=== PATIENT | female | born 1935 | race African-American/Black ===

== ENCOUNTER 2016-12-10 09:22 | Outpatient (CLI) | payer MEDICARE ==
[2016-12-10 10:24] LABS: #Basophils 0.2 thou/uL (0.0-0.2); #Eosinphils 0.3 thou/uL (0.0-0.7); #Lymphocytes 2.9 thou/uL (1.20-3.40); #Monocytes 0.8 thou/uL (0.11-0.59); #Neutrophils 4.8 thou/uL (1.40-6.50); %Basophils 1.7 % (0.0-1.0); %Eosinophils 3.5 % (0.0-10.0); %Lymphocytes 32.2 % (21.0-51.0); %Monocytes 8.5 % (0.0-10.0); Hemoglobin 11.7 g/dL (12.0-16.0); Mean Corpuscular HGB CONC 32.7 g/dL (32.0-36.0); Mean Corpuscular Hemoglobin 28.3 pg (27.0-31.0); Mean Corpuscular Volume 86.4 fl (81.0-99.0); Mean Platelet Volume 8.7 fL (7.4-10.4); Platelet Count 249 thou/uL (130-400); RBC Distribution Width 13.9 % (11.5-14.5); Red Blood Cell (RBC) Count 4.14 mill/uL (4.20-5.40); White Blood Cell (WBC) Count 8.9 thou/uL (4.8-10.8)
[2016-12-10 11:41] LABS: ALT (SGPT) 13 U/L (0-55); AST (SGOT) 17 U/L (5-34); Albumin 3.9 g/dL (3.4-4.8); Alkaline Phosphatase 71 U/L (40-150); Anion Gap 16 mmol/L (10-20); BUN (Urea Nitrogen) 14 mg/dL (9.8-20.1); Bilirubin, Direct 0.1 mg/dL (0.1-0.3); Bilirubin, Total 0.3 mg/dL (0.2-1.2); Calc. Creatinine Clearance 0 mL/min (70-130); Calcium 9.4 mg/dL (7.8-10.44); Carbon Dioxide 24 mmol/L (23-31); Cardiac Risk 3.1 (Less than 4.5); Chloride 108 mmol/L (98-107); Cholesterol 184 mg/dL (< 200 Desired); Estimated GFR-MDRD 62; Glucose 110 mg/dL (83-110); HDL Cholesterol 59 mg/dL (>60 Neg Risk); LDL Cholesterol, Calculated 107 mg/dL; Potassium 4.6 mmol/L (3.5-5.1); Protein, Total 7.2 g/dL (5.8-8.1); Sodium 143 mmol/L (136-145); Triglycerides 90 mg/dL (Less than 150)
== END 2016-12-10 09:23 ==
LOC: MADLABBHPM 09:22
PROVIDERS: ATTEND Family Medicine
DX: E78.5 Hyperlipidemia, unspecified (principal)
CPT/HCPCS: 80048; 80061; 80076; 85025

== ENCOUNTER 2017-03-11 09:07 | Outpatient (CLI) | payer MEDICARE ==
[2017-03-11 10:05] LABS: #Basophils 0.1 thou/uL (0.0-0.2); #Eosinphils 0.3 thou/uL (0.0-0.7); #Lymphocytes 2.6 thou/uL (1.20-3.40); #Monocytes 0.6 thou/uL (0.11-0.59); #Neutrophils 3.4 thou/uL (1.40-6.50); %Basophils 1.9 % (0.0-1.0); %Eosinophils 3.6 % (0.0-10.0); %Lymphocytes 37.6 % (21.0-51.0); %Monocytes 8.5 % (0.0-10.0); %Neutrophils 48.3 % (42.0-75.0); Mean Corpuscular HGB CONC 34.1 g/dL (32.0-36.0); Mean Corpuscular Hemoglobin 29.7 pg (27.0-31.0); Mean Corpuscular Volume 87.1 fl (81.0-99.0); Mean Platelet Volume 9.4 fL (7.4-10.4); Platelet Count 220 thou/uL (130-400); RBC Distribution Width 13.5 % (11.5-14.5); Red Blood Cell (RBC) Count 4.04 mill/uL (4.20-5.40)
[2017-03-11 10:23] LABS: ALT (SGPT) 11 U/L (8-55); AST (SGOT) 14 U/L (5-34); Albumin 3.9 g/dL (3.4-4.8); Alkaline Phosphatase 67 U/L (40-150); Anion Gap 14 mmol/L (10-20); BUN (Urea Nitrogen) 10 mg/dL (9.8-20.1); Bilirubin, Total 0.3 mg/dL (0.2-1.2); Calc. Creatinine Clearance 0 mL/min (70-130); Calcium 9.3 mg/dL (7.8-10.44); Carbon Dioxide 23 mmol/L (23-31); Cardiac Risk 3.1 (Less than 4.5); Chloride 110 mmol/L (98-107); Cholesterol 162 mg/dl (< 200 Desired); Estimated GFR-MDRD 77; Glucose 96 mg/dL (83-110); HDL Cholesterol 52 mg/dL (>60 Neg Risk); LDL Cholesterol, Calculated 93 mg/dL; Potassium 4.3 mmol/L (3.5-5.1); Protein, Total 6.9 g/dL (6.0-8.3); Sodium 143 mmol/L (136-145); Triglycerides 87 mg/dL (Less than 150)
[2017-03-11 11:10] LABS: Clarity Clear (Clear)
[2017-03-11 11:11] LABS: Bilirubin Negative (Negative); Blood, Urine Negative (Negative); Glucose, Urine (Dipstick) Negative (Negative); Leukocyte Small (Negative); Nitrite Negative (Negative); Protein, Urine (Dipstick) Negative (Neg-Trace); Urobilinogen 0.2 mg/dL (0.2-1.0); pH, Urine 5.5 (5.0-9.0)
[2017-03-11 11:12] LABS: RBC/HPF 0-3 HPF (0-3); WBC/HPF 0-3 HPF (0-3)
[2017-03-11 11:13] LABS: Bacteria/HPF Rare-Few HPF (None Seen)
== END 2017-03-11 09:08 ==
LOC: MADLABBHPM 09:07
PROVIDERS: ATTEND Family Medicine
DX: E78.5 Hyperlipidemia, unspecified (principal); N18.9 Chronic kidney disease, unspecified; M15.9 Polyosteoarthritis, unspecified; D63.8 Anemia in other chronic diseases classified elsewhere
CPT/HCPCS: 36415; 80053; 80061; 81001; 84443; 85025

== ENCOUNTER 2017-06-11 09:37 | Outpatient (CLI) | payer MEDICARE ==
[2017-06-11 10:00] LABS: #Basophils 0.1 thou/uL (0.0-0.2); #Eosinphils 0.3 thou/uL (0.0-0.7); #Lymphocytes 2.4 thou/uL (1.20-3.40); #Monocytes 0.5 thou/uL (0.11-0.59); #Neutrophils 3.3 thou/uL (1.40-6.50); %Basophils 1.6 % (0.0-1.0); %Lymphocytes 36.8 % (21.0-51.0); %Monocytes 7.7 % (0.0-10.0); Hemoglobin 11.4 g/dL (12.0-16.0); Mean Corpuscular HGB CONC 30.9 g/dL (32.0-36.0); Mean Corpuscular Hemoglobin 27.6 pg (27.0-31.0); Mean Corpuscular Volume 89.3 fl (81.0-99.0); Mean Platelet Volume 7.9 fL (7.4-10.4); Platelet Count 220 thou/uL (130-400); RBC Distribution Width 15.7 % (11.5-14.5); Red Blood Cell (RBC) Count 4.12 mill/uL (4.20-5.40); White Blood Cell (WBC) Count 6.6 thou/uL (4.8-10.8)
[2017-06-11 10:23] LABS: ALT (SGPT) 10 U/L (8-55); AST (SGOT) 13 U/L (5-34); Albumin 3.8 g/dL (3.4-4.8); Alkaline Phosphatase 73 U/L (40-150); Anion Gap 12 mmol/L (10-20); BUN (Urea Nitrogen) 10 mg/dL (9.8-20.1); Bilirubin, Direct 0.2 mg/dL (0.1-0.3); Bilirubin, Total 0.4 mg/dL (0.2-1.2); Calc. Creatinine Clearance 0 mL/min (70-130); Calcium 9.3 mg/dL (7.8-10.44); Carbon Dioxide 25 mmol/L (23-31); Cardiac Risk 4.2 (Less than 4.5); Chloride 110 mmol/L (98-107); Cholesterol 175 mg/dl (< 200 Desired); Estimated GFR-MDRD 64; Glucose 96 mg/dL (83-110); HDL Cholesterol 42 mg/dL (>60 Neg Risk); LDL Cholesterol, Calculated 106 mg/dL; Potassium 3.9 mmol/L (3.5-5.1); Protein, Total 7.1 g/dL (6.0-8.3); Sodium 143 mmol/L (136-145); Triglycerides 134 mg/dL (Less than 150)
== END 2017-06-11 09:38 | disposition home or self-care (01) ==
LOC: MADLABBHPM 09:37
PROVIDERS: ATTEND Family Medicine
DX: E78.5 Hyperlipidemia, unspecified (principal); N18.9 Chronic kidney disease, unspecified; D63.1 Anemia in chronic kidney disease; R94.6 Abnormal results of thyroid function studies
CPT/HCPCS: 36415; 80048; 80061; 80076; 84443; 85025

== ENCOUNTER 2017-09-24 11:46 | Outpatient (CLI) | payer MEDICARE ==
--- NOTE | 2017-09-24 16:00 | RAD ---
RADIOGRAPH RIGHT HIP TWO VIEWS: Date: 09-24-17 Time: 11:45 a.m. History: 82-year-old female with chronic right hip pain. No recent trauma. FINDINGS: There are enthesophytes at the lateral aspect of the right iliac wing, ischial tuberosity and inferio r ramus, lateral edges of the superior and inferior aspects of the acetabulum, and at the greater and lesser trochanters. There are moderate degenerative changes at the right SI joint. there is diffuse, mild to moderate joint space narrowing of the right hip. There is moderate acetabular and subcapital osteophytosis. Right femoral head contour is maintained. IMPRESSION: 1. Moderate osteoarthrosis of the right hip. 2. 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 3. Osteoarthrosis of the right sacroiliac joint. POS: [facility]
== END 2017-09-24 11:47 | disposition home or self-care (01) ==
LOC: MADRAD 11:46
PROVIDERS: ATTEND Family Medicine
DX: M25.551 Pain in right hip (principal); M16.11 Unilateral primary osteoarthritis, right hip; M53.3 Sacrococcygeal disorders, not elsewhere classified; M76.891 Other specified enthesopathies of right lower limb, excluding foot

== ENCOUNTER 2017-11-21 14:16 | Outpatient (CLI) | payer MEDICARE ==
--- NOTE | 2017-11-21 16:06 | RAD ---
RIGHT HIP 2 VIEWS: HISTORY: Right hip pain. COMPARISON: 09/24/17. FINDINGS: There is severe joint space loss and moderate to severe osteophytosis and subchondral sclerosis. Fem oral head contour is maintained. No acute fracture or dislocation are apparent. IMPRESSION: Osteoarthritis right hip. POS: [facility]
== END 2017-11-21 14:17 | disposition home or self-care (01) ==
LOC: MADRAD 14:16
PROVIDERS: ATTEND Orthopaedic Surgery
DX: M25.551 Pain in right hip (principal); M16.11 Unilateral primary osteoarthritis, right hip

== ENCOUNTER 2017-12-10 07:54 | Outpatient (CLI) | payer MEDICARE ==
[2017-12-10 08:28] LABS: #Basophils 0.1 thou/uL (0.0-0.2); #Eosinphils 0.3 thou/uL (0.0-0.7); #Lymphocytes 2.1 thou/uL (1.20-3.40); #Monocytes 0.6 thou/uL (0.11-0.59); #Neutrophils 5.1 thou/uL (1.40-6.50); %Basophils 1.3 % (0.0-1.0); %Eosinophils 3.3 % (0.0-10.0); %Lymphocytes 25.5 % (21.0-51.0); Hemoglobin 11.3 g/dL (12.0-16.0); Mean Corpuscular HGB CONC 30.3 g/dL (32.0-36.0); Mean Corpuscular Hemoglobin 28.9 pg (27.0-31.0); Mean Corpuscular Volume 95.1 fl (81.0-99.0); Mean Platelet Volume 7.6 fL (7.4-10.4); Platelet Count 249 thou/uL (130-400); RBC Distribution Width 12.8 % (11.5-14.5); Red Blood Cell (RBC) Count 3.91 mill/uL (4.20-5.40); White Blood Cell (WBC) Count 8.1 thou/uL (4.8-10.8)
[2017-12-10 08:37] LABS: Anion Gap 17 mmol/L (10-20); BUN (Urea Nitrogen) 14 mg/dL (9.8-20.1); Calc. Creatinine Clearance 0 mL/min (70-130); Calcium 9.2 mg/dL (7.8-10.44); Carbon Dioxide 21 mmol/L (23-31); Chloride 110 mmol/L (98-107); Estimated GFR-MDRD 71; Glucose 117 mg/dL (83-110); Sodium 144 mmol/L (136-145)
--- NOTE | 2017-12-10 12:05 | RAD ---
PA AND LATERAL VIEWS CHEST: RIGHT RIB SERIES: HISTORY: Right-sided chest pain after fall. FINDINGS: The heart size is borderline. The aorta is tortuous. The lungs are well expanded without confluent areas of consolidation, pneumothorax, or pleural effusions. There are degenerative changes in the sp ine. There are fractures involving the right 5th and 6th ribs. IMPRESSION: Right 5th and 6th rib fractures. POS: [facility]
[2017-12-10 17:23] LABS: Free T4 (Free Thyroxine) 1.09 ng/dL (0.70-1.48)
== END 2017-12-10 07:55 | disposition home or self-care (01) ==
LOC: MADLABBHPM 07:54
PROVIDERS: ATTEND Family Medicine
DX: D63.8 Anemia in other chronic diseases classified elsewhere (principal); R94.6 Abnormal results of thyroid function studies; I10 Essential (primary) hypertension
CPT/HCPCS: 36415; 71046; 80048; 84439; 84443; 84481; 85025

== ENCOUNTER 2018-01-08 13:49 | Outpatient (CLI) | payer MEDICARE ==
--- NOTE | 2018-01-08 14:48 | RAD ---
PA AND LATERAL VIEWS OF CHEST: Date: 01/08/18 HISTORY: Preoperative evaluation. FINDINGS: Comparison made with exam of 12/10/17. The heart size is normal. The aorta is tortuous. The lungs are well expanded without focal areas of c onsolidation, pneumothorax, or pleural effusions. There are degenerative changes in the spine. Fractu res involving the right 5th and 6th ribs are again seen. IMPRESSION: No radiographic evidence of acute cardiopulmonary process. POS: C
== END 2018-01-08 13:50 | disposition home or self-care (01) ==
LOC: MADRAD 13:49
PROVIDERS: ATTEND Orthopaedic Surgery
DX: Z01.818 Encounter for other preprocedural examination (principal); M16.11 Unilateral primary osteoarthritis, right hip
CPT/HCPCS: 71046

== ENCOUNTER 2018-07-25 10:22 | Inpatient (IN) | payer MEDICARE ==
[2018-07-25] MEDS ORDERED: Acetaminophen 325 MG TAB PO PRN (11:52)
[2018-07-25] MEDS ORDERED: traMADol HCl 50 MG TAB PO PRN ×2 (11:54)
--- NOTE | 2018-07-25 12:59 | HP ---
Admitted to [facility] to extended care on 07/25/2018 CHIEF COMPLAINT: Weakness. PRESENT ILLNESS: The patient is an 83-year-old white female who a history of hypertension, generaliz ed osteoarthritis advanced to the right hip, creating pain with walking that has progressively got wo rse. She lives at her home, independent of all her ADLs. The patient has seen Dr. Romo for sever e arthritis of the right hip and finally advanced to where she was ready to have a hip replacement. The patient was admitted to [facility] on 07/22/2018 and underwent a right to lynnette hip arthroplasty by Dr. Leonid Romo on 07/22/2018. The patient had no problems with the surge ry and has been up ambulating some with a rolling walker. Postoperatively, she was found to have a u rinary tract infection and was started on Cipro 500 mg b.i.d. on 07/23/2018. The culture has since c ome back and the urine was reviewed today and showed the urine culture grew E. coli, colony count gre ater than 100,000. The organism is resistant to the Cipro, but sensitive to nitrofurantoin. The radha cummins was transferred to [facility] on the morning of 07/25/2018 for continued physical therapy and occupational therapy due to her general weakness, gait abnormality, and deconditioning. Patient was seen at her arrival, she said she is doing good. She has had some nausea this morning wi th the trip over here and she was given Zofran for the nausea. Prior to she was given tramadol for pain. Right now, she says she is feeling a little better. She said she has been up and has bee n walking with a rolling walker, but has a great deal of difficulty with any transfers. The patient says that the pain in the hip with weightbearing is markedly improved since her surgery, but still so re from the surgical procedure. PAST HISTORY: Hospitalized at [facility] from 07/22/2018 until 07/25/2018 for severe arth ritis of the right hip for which she underwent a right total hip arthroplasty. Postop, she was found to have a urinary tract infection with E. coli. 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 Echocardiogram in 2008 showed ejection fraction of 60%-65%, hearing impairment. PRESENT MEDICINES: Tramadol 50 mg 1-2 every 6 hours as needed for pain, aspirin 81 mg daily, Cipro 5 00 mg b.i.d. started on 07/23/2018, multivitamin 1 daily, losartan 50 mg daily, amlodipine 5 mg daily , KCl 10 mEq b.i.d., Advil PM 2 at bedtime as needed, gabapentin 100 mg 2 at bedtime, Aleve 220 mg 2 b.i.d. as needed. ALLERGIES: SULFA DRUGS causes a rash, CLINDAMYCIN causes a rash, PENICILLIN, IBUPROFEN causes vertig o, SULFASALAZINE causes depression, LISINOPRIL causes cough. REVIEW OF SYSTEMS: General: The patient does not think that she has had any recent fever. She does not think her weight has changed appreciably. Head and Neck: No complaints. Pulmonary: No shortn ess of breath. Cardiovascular: No chest pain. Gastrointestinal: Nauseated this morning with the t rip from [facility] to here, had nausea a couple of days ago. The patient has no abdomina l pain. Denies any change in her bowel habits. Genitourinary: No complaint. Musculoskeletal: Sore ness in the right hip from the surgery. Neuropsychiatric: No complaint. ADLs: Independent of her ADLs. HABITS: Alcohol none. Tobacco none. SOCIAL HISTORY: Patient lives independently, and is independent of all her ADLs. CODE STATUS: FULL CODE. PHYSICAL EXAMINATION: GENERAL: Shows an 83-year-old white female who just arrived in her room and was seated in her room. She had trouble getting up from the wheelchair and required 2 people assisting. Once in her chair, she was comfortable. She appears a little pale, but in no acute distress. VITAL SIGNS: Temperature is 96.4, pulse 73, respirations 20, O2 saturation 100% on room air, blood p ressure 155/70. HEAD: Normocephalic. EYES: Pupils are equal, round, and reactive. Sclerae nonicteric. EARS: TMs are clear. NOSE: Normal. MOUTH AND THROAT: Normal, mucous membranes are moist. NECK: No thyromegaly. No adenopathy. Carotids are equal and strong, no bruits. LUNGS: Clear. HEART: Regular rate. No murmurs. ABDOMEN: Soft, no organomegaly, nor areas of tenderness. Right hip, the patient has an incision patrice t has been closed with subcuticular stitch and has no surrounding redness nor drainage. EXTREMITIES: Lower extremities, no edema. NEUROLOGIC: Patient is alert and oriented x3, has generalized weakness, but no focal weakness. IMPRESSION: 1. Generalized weakness and deconditioning. A. Gradual decline in her general strength and conditioning due to severe arthritis in the hip. B. Contributed to now by the surgery for the hip replacement on the right on 07/22/2018. 2. Severe arthritis of the right hip. A. Creating chronic pain with weightbearing. B. 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 3. Urinary tract infection. A. Urine culture from 07/23/2018 shows E. coli, colony count greater than 100,000, organism resistan t to Cipro, but sensitive to nitrofurantoin. 4. Hypertension, controlled. 5. Peripheral neuropathy of the lower extremities. 6. Hyperlipidemia. PLAN: The patient has been admitted to the hospital for physical therapy and occupational therapy in an effort to improve her strength, conditioning, gait, and functional capability. Long range of jayden ns will be for her eventual discharge home. We will continue her routine medicines. We will stop th e Cipro and switched to nitrofurantoin b.i.d. for 10 days. Continue her routine medications. See or ders.
[2018-07-25] MEDS: Nitrofurantoin Monohyd/M-Cryst 100 MG CAP PO SCH (20:28)
[2018-07-25] MEDS: Aspirin 81 mg Enteric Coated Tablet PO SCH (20:28)
[2018-07-25] MEDS: Potassium Chloride 10 MEQ TAB PO SCH (20:28)
[2018-07-26 05:26] LABS: #Basophils 0.3 thou/uL (0.0-0.2); #Eosinphils 0.1 thou/uL (0.0-0.7); #Neutrophils 8.9 thou/uL (1.40-6.50); %Basophils 1.9 % (0.0-1.0); %Eosinophils 0.7 % (0.0-10.0); %Lymphocytes 22.7 % (21.0-51.0); %Monocytes 7.4 % (0.0-10.0); %Neutrophils 67.3 % (42.0-75.0); Hemoglobin 9.2 g/dL (12.0-16.0); Mean Corpuscular HGB CONC 32.7 g/dL (32.0-36.0); Mean Corpuscular Hemoglobin 27.4 pg (27.0-31.0); Mean Corpuscular Volume 83.9 fL (78.0-98.0); Platelet Count 231 thou/uL (130-400); RBC Distribution Width 12.1 % (11.5-14.5); Red Blood Cell (RBC) Count 3.37 mill/uL (4.20-5.40); White Blood Cell (WBC) Count 13.3 thou/uL (4.8-10.8)
[2018-07-26 05:42] LABS: ALT (SGPT) 23 U/L (8-55); AST (SGOT) 31 U/L (5-34); Alkaline Phosphatase 55 U/L (40-150); Anion Gap 10 mmol/L (10-20); BUN (Urea Nitrogen) 18 mg/dL (9.8-20.1); Bilirubin, Total 0.6 mg/dL (0.2-1.2); Calc. Creatinine Clearance 66 mL/min (70-130); Carbon Dioxide 25 mmol/L (23-31); Chloride 109 mmol/L (98-107); Estimated GFR-MDRD 82; Globulin 3.3 g/dL (2.4-3.5); Glucose 104 mg/dL (83-110); Protein, Total 6.3 g/dL (6.0-8.3); Sodium 140 mmol/L (136-145)
[2018-07-26] MEDS ORDERED: traMADol HCl 50 MG TAB PO PRN (08:09)
[2018-07-26] MEDS: Multivitamin W/ Minerals 1 TAB PO SCH (09:12)
[2018-07-26] MEDS: Losartan 25 MG TAB PO SCH (09:12)
[2018-07-26] MEDS: Potassium Chloride 10 MEQ TAB PO SCH ×2 (09:12→20:17)
[2018-07-26] MEDS: Nitrofurantoin Monohyd/M-Cryst 100 MG CAP PO SCH ×2 (09:13→20:17)
[2018-07-26] MEDS: Amlodipine 5 MG TAB PO SCH (09:13)
[2018-07-26] MEDS: Aspirin 81 mg Enteric Coated Tablet PO SCH ×2 (09:13→20:17)
[2018-07-26] MEDS: Ondansetron ODT 4 MG TAB PO PRN ×3 (09:18→22:25)
[2018-07-27] MEDS: Amlodipine 5 MG TAB PO SCH (08:41)
[2018-07-27] MEDS: Aspirin 81 mg Enteric Coated Tablet PO SCH ×2 (08:41→20:59)
[2018-07-27] MEDS: Potassium Chloride 10 MEQ TAB PO SCH ×2 (08:41→20:59)
[2018-07-27] MEDS: Nitrofurantoin Monohyd/M-Cryst 100 MG CAP PO SCH ×2 (08:41→21:00)
[2018-07-27] MEDS: Multivitamin W/ Minerals 1 TAB PO SCH (08:41)
[2018-07-27] MEDS: Losartan 25 MG TAB PO SCH (08:41)
[2018-07-27] MEDS: Ondansetron ODT 4 MG TAB PO PRN (08:52)
[2018-07-28] MEDS: Amlodipine 5 MG TAB PO SCH (08:34)
[2018-07-28] MEDS: Ondansetron ODT 4 MG TAB PO PRN ×2 (08:34→20:05)
[2018-07-28] MEDS: Aspirin 81 mg Enteric Coated Tablet PO SCH ×2 (08:34→21:06)
[2018-07-28] MEDS: Nitrofurantoin Monohyd/M-Cryst 100 MG CAP PO SCH ×2 (08:35→21:06)
[2018-07-28] MEDS: Potassium Chloride 10 MEQ TAB PO SCH ×2 (08:35→21:07)
[2018-07-28] MEDS: Losartan 25 MG TAB PO SCH (08:35)
[2018-07-28] MEDS: Multivitamin W/ Minerals 1 TAB PO SCH (08:35)
--- NOTE | 2018-07-28 09:25 | PRG ---
DATE OF SERVICE: 07/26/2018. SUBJECTIVE: The patient says she is feeling better today, the trip over here from [place] wore her out yesterday. Today, she is feeling better. OBJECTIVE: GENERAL: The patient is lying in bed, alert, appears comfortable in no distress. VITAL SIGNS: Her temperature is 98.3, pulse 79, respirations 16, O2 saturation 97%, blood pressure 1 37/64. LUNGS: Clear. HEART: Regular rate. EXTREMITIES: No edema. Dressing over the incision of the right hip is dry. LABORATORY DATA: Shows an H&H of 9.2 and 28.3, white cell count 13,300 with 67% segs, 23% lymphocyte s, and a platelet count of 231. Sodium 140, potassium 4, BUN 18, creatinine 0.8, GFR 82. ASSESSMENT: 1. Generalized weakness and deconditioning. A. Gradual decline in her general strength and conditioning due to severe arthritis in the hip. B. Contributed to now by the surgery for the hip replacement on the right on 07/22/2018. C. Improved. Ambulating with a rolling walker and assistance as of 07/26/2018. 2. Severe arthritis of the right hip. A. Creating chronic pain with weightbearing. B. 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 C. Doing well from recent right hip surgery on postop day #4 as of 07/26/2018. 3. Urinary tract infection. A. Urine culture from 07/23/2018 shows E. coli, colony count greater than 100,000, organism resistan t to Cipro, but sensitive to nitrofurantoin. B. Asymptomatic, presently on nitrofurantoin as of 07/26/2018. 4. Hypertension, controlled. 5. Peripheral neuropathy of the lower extremities. 6. Hyperlipidemia. 7. Anemia. A. Secondary to recent surgery and history of mild chronic anemia. Hemoglobin 9.2 as of 07/26/2018. PLAN: Continue present care. Continue PT.
--- NOTE | 2018-07-28 09:26 | PRG ---
DATE OF SERVICE: 07/28/2018 SUBJECTIVE: The patient said she has been doing well, but has been having some intermittent nausea. She is only occasionally taking the tramadol. It does not seem be related to this. She is not taki ng the naproxen. She is on the Macrobid and some of the nausea may be following this. This is being given with food. OBJECTIVE: The patient is alert, talkative, appears in no acute distress. Her temperature is 99.4, pulse 83, respirations 16, O2 sat 97% on room air, blood pressure last evening was 167/72. Vitals th is morning pending. Lungs clear. Heart, regular rate. Incision is clean with a tiny amount of sero us drainage on the dressing. The lower extremities have no edema. ASSESSMENT: 1. Generalized weakness and deconditioning. A. Gradual decline in her general strength and conditioning due to severe arthritis in the hip. B. Contributed to now by the surgery for the hip replacement on the right on 07/22/2018. C. Improved as of 07/28/2018. 2. Severe arthritis of the right hip. A. Creating chronic pain with weightbearing. B. 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 C. Healing as of 07/28/2018. 3. Urinary tract infection. A. Urine culture from 07/23/2018 shows E. coli, colony count greater than 100,000, organism resistan t to Cipro, but sensitive to nitrofurantoin. 4. Hypertension, controlled. 5. Peripheral neuropathy of the lower extremities. 6. Hyperlipidemia. 7. Nausea, possibly related to the Macrobid. PLAN: Continue present care. Macrobid will be given with food and dosage will be preceded by Maral . She has been scheduled to use this for a 7 day period which will complete on 08/01/2018. She also has been placed on pantoprazole. Continue PT and OT.
[2018-07-29] MEDS: Ondansetron ODT 4 MG TAB PO PRN ×2 (08:37→19:58)
[2018-07-29] MEDS: Aspirin 81 mg Enteric Coated Tablet PO SCH ×2 (08:53→20:08)
[2018-07-29] MEDS: Amlodipine 5 MG TAB PO SCH (08:53)
[2018-07-29] MEDS: Potassium Chloride 10 MEQ TAB PO SCH ×2 (08:54→20:08)
[2018-07-29] MEDS: Losartan 25 MG TAB PO SCH (08:54)
[2018-07-29] MEDS: Nitrofurantoin Monohyd/M-Cryst 100 MG CAP PO SCH ×2 (08:54→20:08)
[2018-07-29] MEDS: Multivitamin W/ Minerals 1 TAB PO SCH (08:54)
--- NOTE | 2018-07-29 10:30 | PRG ---
DATE OF SERVICE: 07/29/2018 SUBJECTIVE: The patient said she is feeling better today. The patient said that the nausea is much better. She is eating some. She has asked for a laxative. Her bowels have not moved in several day s. At home, she uses Dulcolax tablets as needed and this works good. OBJECTIVE: The patient is sitting up in a chair. She looks much better. She appears in no distress . Her temperature is 97.2, pulse 78, respirations 18, O2 saturation 98% on room air, blood pressure 121/59. Lungs are clear. Heart, regular rate. Extremities, no edema. ASSESSMENT: 1. Generalized weakness and deconditioning. A. Gradual decline in her general strength and conditioning due to severe arthritis in the hip. B. Contributed to now by the surgery for the hip replacement on the right on 07/22/2018. C. Improved as of 07/29/2018. 2. Severe arthritis of the right hip. A. Creating chronic pain with weightbearing. B. 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 C. Healing as of 07/29/2018. 3. Urinary tract infection. A. Urine culture from 07/23/2018 shows E. coli, colony count greater than 100,000, organism resistan t to Cipro, but sensitive to nitrofurantoin. 4. Hypertension, controlled. 5. Peripheral neuropathy of the lower extremities. 6. Hyperlipidemia. 7. Nausea, possibly related to the Macrobid. A. Improved. 8. Constipation. PLAN: Continue present care. Continue PT, OT. I will order Dulcolax 5 mg 1 or 2 daily as needed.
[2018-07-29] MEDS: Bisacodyl 5 MG TAB PO PRN (13:22)
[2018-07-30] MEDS: Losartan 25 MG TAB PO SCH (08:24)
[2018-07-30] MEDS: Ondansetron ODT 4 MG TAB PO PRN ×2 (08:24→20:00)
[2018-07-30] MEDS: Multivitamin W/ Minerals 1 TAB PO SCH (08:24)
[2018-07-30] MEDS: Amlodipine 5 MG TAB PO SCH (08:24)
[2018-07-30] MEDS: Potassium Chloride 10 MEQ TAB PO SCH ×2 (08:24→20:10)
[2018-07-30] MEDS: Nitrofurantoin Monohyd/M-Cryst 100 MG CAP PO SCH ×2 (08:25→20:10)
[2018-07-30] MEDS: Aspirin 81 mg Enteric Coated Tablet PO SCH ×2 (08:25→20:10)
[2018-07-30] MEDS: Bisacodyl 5 MG TAB PO PRN (08:41)
--- NOTE | 2018-07-30 11:20 | PRG ---
DATE OF SERVICE: 07/30/2018 SUBJECTIVE: The patient said she is doing better. She was able to walk a little further. She is no t having any more of the nausea. OBJECTIVE: The patient is walking with her walker and therapist back from physical therapy room. She has her walker and is doing well. She appears comfortable in no distress. Her vital signs show a t emperature 97.5, pulse 87, respirations 18, O2 sat 97% on room air, blood pressure 122/64. Lungs wer e clear. Heart, regular rate. Extremities, no edema. ASSESSMENT: 1. Generalized weakness and deconditioning. A. Gradual decline in her general strength and conditioning due to severe arthritis in the hip. B. Contributed to now by the surgery for the hip replacement on the right on 07/22/2018. C. Improved as of 07/30/2018. 2. Severe arthritis of the right hip. A. Creating chronic pain with weightbearing. B. 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 C. Healing as of 07/29/2018. 3. Urinary tract infection. A. Urine culture from 07/23/2018 shows E. coli, colony count greater than 100,000, organism resistan t to Cipro, but sensitive to nitrofurantoin. B. Asymptomatic as of 07/30/2018. Will complete the nitrofurantoin on 08/01/2018. 4. Hypertension, controlled. 5. Peripheral neuropathy of the lower extremities. 6. Hyperlipidemia. 7. Nausea, possibly related to the Macrobid. A. Resolved as of 07/30/2018. 8. Constipation. PLAN: Continue present care. Continue PT and OT.
[2018-07-31] MEDS: Ondansetron ODT 4 MG TAB PO PRN ×2 (08:19→20:30)
[2018-07-31] MEDS: Aspirin 81 mg Enteric Coated Tablet PO SCH ×2 (08:31→20:36)
[2018-07-31] MEDS: Losartan 25 MG TAB PO SCH (08:31)
[2018-07-31] MEDS: Amlodipine 5 MG TAB PO SCH (08:31)
[2018-07-31] MEDS: Multivitamin W/ Minerals 1 TAB PO SCH (08:32)
[2018-07-31] MEDS: Potassium Chloride 10 MEQ TAB PO SCH ×2 (08:32→20:36)
[2018-07-31] MEDS: Nitrofurantoin Monohyd/M-Cryst 100 MG CAP PO SCH ×2 (08:32→20:35)
--- NOTE | 2018-07-31 10:03 | PRG ---
DATE OF SERVICE: 07/31/2018 SUBJECTIVE: The patient said she is doing a little better. She is doing better with the therapy. S till sore in that right hip area, but it is improving. OBJECTIVE: The patient is sitting up in a bedside chair, preparing to have breakfast. She looks com fortable in no distress. Her vital signs show a temperature 96.7, pulse 83, respirations 16, O2 sat 97% on room air, blood pressure 122/56. Lungs are clear. Heart, regular rate. Extremities, no umu a. ASSESSMENT: 1. Generalized weakness and deconditioning. A. Gradual decline in her general strength and conditioning due to severe arthritis in the hip. B. Contributed to now by the surgery for the hip replacement on the right on 07/22/2018. C. Improved as of 07/31/2018. 2. Severe arthritis of the right hip. A. Creating chronic pain with weightbearing. B. 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 C. Gradually healing as of 07/31/2018. 3. Urinary tract infection. A. Urine culture from 07/23/2018 shows E. coli, colony count greater than 100,000, organism resistan t to Cipro, but sensitive to nitrofurantoin. B. Asymptomatic as of 07/30/2018. Will complete the nitrofurantoin on 08/01/2018. 4. Hypertension, controlled. 5. Peripheral neuropathy of the lower extremities. 6. Hyperlipidemia. 7. Nausea, possibly related to the Macrobid. A. Resolved as of 07/30/2018. 8. Constipation. PLAN: Continue present care. Continue PT, OT. The patient will complete her antibiotics for the NM I tomorrow 08/01/2018.
[2018-08-01] MEDS: Losartan 25 MG TAB PO SCH (09:46)
[2018-08-01] MEDS: Amlodipine 5 MG TAB PO SCH (09:48)
[2018-08-01] MEDS: Nitrofurantoin Monohyd/M-Cryst 100 MG CAP PO SCH ×2 (09:49→20:55)
[2018-08-01] MEDS: Multivitamin W/ Minerals 1 TAB PO SCH (09:49)
[2018-08-01] MEDS: Potassium Chloride 10 MEQ TAB PO SCH ×2 (09:50→20:55)
[2018-08-01] MEDS: Aspirin 81 mg Enteric Coated Tablet PO SCH ×2 (09:50→20:55)
--- NOTE | 2018-08-01 10:58 | PRG ---
DATE OF SERVICE: 08/01/2018 SUBJECTIVE: The patient said she is doing better. She has had no more nausea. Her bowels are worki ng well. Her pain in that right hip is getting less and less. She is doing better with her therapy. OBJECTIVE: GENERAL: The patient is sitting up in a chair. She appears in no distress. VITAL SIGNS: Show a temperature of 98, her pulse is 82, respirations 18, O2 sat 95% on room air, blo od pressure 138/72. LUNGS: Clear. HEART: Regular rate. EXTREMITIES: No edema. ASSESSMENT: 1. Generalized weakness and deconditioning. A. Gradual decline in her general strength and conditioning due to severe arthritis in the hip. B. Contributed to now by the surgery for the hip replacement on the right on 07/22/2018. C. Improved as of 08/01/2018. 2. Severe arthritis of the right hip. A. Creating chronic pain with weightbearing. B. 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 C. Gradually improving as of 08/01/2018 3. Urinary tract infection. A. Urine culture from 07/23/2018 shows E. coli, colony count greater than 100,000, organism resistan t to Cipro, but sensitive to nitrofurantoin. B. Asymptomatic as of 07/30/2018. Will complete the nitrofurantoin on 08/01/2018. 4. Hypertension, controlled. 5. Peripheral neuropathy of the lower extremities. 6. Hyperlipidemia. 7. Nausea, possibly related to the Macrobid. A. Resolved as of 07/30/2018. 8. Constipation. A. Controlled as of 08/01/2018. PLAN: Continue present care. Continue PT and OT.
[2018-08-02] MEDS: traMADol HCl 50 MG TAB PO PRN ×2 (00:26→20:44)
[2018-08-02] MEDS: Amlodipine 5 MG TAB PO SCH (09:44)
[2018-08-02] MEDS: Losartan 25 MG TAB PO SCH (09:46)
[2018-08-02] MEDS: Multivitamin W/ Minerals 1 TAB PO SCH (09:46)
[2018-08-02] MEDS: Aspirin 81 mg Enteric Coated Tablet PO SCH ×2 (09:46→20:44)
[2018-08-02] MEDS: Potassium Chloride 10 MEQ TAB PO SCH ×2 (09:47→20:44)
[2018-08-03] MEDS: Amlodipine 5 MG TAB PO SCH (09:59)
[2018-08-03] MEDS: Losartan 25 MG TAB PO SCH (10:00)
[2018-08-03] MEDS: Aspirin 81 mg Enteric Coated Tablet PO SCH ×2 (10:00→20:10)
[2018-08-03] MEDS: Multivitamin W/ Minerals 1 TAB PO SCH (10:01)
[2018-08-03] MEDS: Potassium Chloride 10 MEQ TAB PO SCH ×2 (10:02→20:10)
--- NOTE | 2018-08-04 09:08 | PRG ---
DATE OF SERVICE: 08/02/2018 SUBJECTIVE: The patient thinks she is doing better. She had a good night. She completed her antibi otics for the UTI yesterday. Her hip is feeling better. OBJECTIVE: The patient lying in bed, awake, appears comfortable, in no distress. Temp 98.6, pulse 8 7, respirations 18, O2 sat 100% on room air, blood pressure 127/60. Lungs are clear. Heart, regular rate. Extremities, no edema. ASSESSMENT: 1. Generalized weakness and deconditioning. A. Gradual decline in her general strength and conditioning due to severe arthritis in the hip. B. Contributed to now by the surgery for the hip replacement on the right on 07/22/2018. C. Improved as of 08/02/2018. 2. Severe arthritis of the right hip. A. Creating chronic pain with weightbearing. B. 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 C. Gradually improving as of 08/02/2018 3. Urinary tract infection. A. Urine culture from 07/23/2018 shows E. coli, colony count greater than 100,000, organism resistan t to Cipro, but sensitive to nitrofurantoin. B. Completed the 7-day course of nitrofurantoin on 08/01/2018. Remains asymptomatic as of 8. 4. Hypertension, controlled. 5. Peripheral neuropathy of the lower extremities. 6. Hyperlipidemia. 7. Nausea, possibly related to the Macrobid. A. Resolved as of 07/30/2018. 8. Constipation. A. Controlled as of 08/02/2018. PLAN: Continue present care. Continue PT and OT.
--- NOTE | 2018-08-04 09:09 | PRG ---
DATE OF SERVICE: 08/03/2018 SUBJECTIVE: Yesterday, patient developed an itching on her upper portion of her incision over the ri ght hip. This then developed some drainage. Nurses said that there was just a serosanguineous drain age, no redness, and just an overlying dressing was applied. The patient said that area is not hurti ng. The itch has just gone away. OBJECTIVE: The patient lying in bed, alert, appears very comfortable, and in no distress. Her tempe rature is 96.5, pulse 85, respirations are 18, O2 sat 94%, blood pressure 108/51. Lungs are clear. Heart, regular rate. Incision over the right hip is healing well. The most superior aspect has abou t a 5 mm opening that has some serosanguineous drainage. There is no surrounding redness nor indurat ion nor fluctuance. The area was nontender. This probably represents a little small drainage of the seroma and tissue. ASSESSMENT: 1. Generalized weakness and deconditioning. A. Gradual decline in her general strength and conditioning due to severe arthritis in the hip. B. Contributed to now by the surgery for the hip replacement on the right on 07/22/2018. C. Improved as of 08/03/2018. 2. Severe arthritis of the right hip. A. Creating chronic pain with weightbearing. B. 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 C. Gradually healing as of 08/03/2018. D. Small opening in the superior aspect of this incision with serosanguineous drainage. No evidence of infection as of 08/03/2018. 3. Urinary tract infection. A. Urine culture from 07/23/2018 shows E. coli, colony count greater than 100,000, organism resistan t to Cipro, but sensitive to nitrofurantoin. B. Asymptomatic as of 07/30/2018. Will complete the nitrofurantoin on 08/01/2018. 4. Hypertension, controlled. 5. Peripheral neuropathy of the lower extremities. 6. Hyperlipidemia. 7. Nausea, possibly related to the Macrobid. A. Resolved as of 07/30/2018. 8. Constipation. A. Controlled as of 08/03/2018. PLAN: The patient is doing very well, is advancing with her therapy. She has developed a tiny openi ng in the superior aspect of the incision. The drainage is serosanguineous, probably representing ju st some fluid blood in the tissue or small seroma. No evidence of infection. This will just be kept clean and a dressing applied and observed.
--- NOTE | 2018-08-04 09:10 | PRG ---
DATE OF SERVICE: 08/04/2018 SUBJECTIVE: The patient says she is doing better. She has no complaint. The hip is not itching lik e it was. OBJECTIVE: The patient is sitting up in a chair. She is alert, appears comfortable in no distress. Her temperature is 99.3, pulse 83, respirations 18, O2 sat 96% on room air, blood pressure 117/56. Lungs are clear. Heart, regular rate. Extremities, no edema. Incision over the right hip healing. The most superior aspect still has a small dressing that is dry. There is no surrounding redness no r induration. ASSESSMENT: 1. Generalized weakness and deconditioning. A. Gradual decline in her general strength and conditioning due to severe arthritis in the hip. B. Contributed to now by the surgery for the hip replacement on the right on 07/22/2018. C. Improved as of 08/04/2018. 2. Severe arthritis of the right hip. A. Creating chronic pain with weightbearing. B. 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 C. Excellent postop progress as of 08/04/2018. 3. Urinary tract infection. A. Urine culture from 07/23/2018 shows E. coli, colony count greater than 100,000, organism resistan t to Cipro, but sensitive to nitrofurantoin. B. Asymptomatic as of 07/30/2018. Will complete the nitrofurantoin on 08/01/2018. 4. Hypertension, controlled. 5. Peripheral neuropathy of the lower extremities. 6. Hyperlipidemia. 7. Nausea, possibly related to the Macrobid. A. Resolved as of 07/30/2018. 8. Constipation. A. Controlled as of 08/01/2018. 9. A small amount of serosanguineous drainage from the superior aspect of the incision of the right hip as noted on 08/03/2018. A. Improved with no evidence of infection as of 08/04/2018. PLAN: Continue present care. Continue physical therapy.
[2018-08-04] MEDS: Amlodipine 5 MG TAB PO SCH (09:26)
[2018-08-04] MEDS: Multivitamin W/ Minerals 1 TAB PO SCH (09:26)
[2018-08-04] MEDS: Aspirin 81 mg Enteric Coated Tablet PO SCH ×2 (09:27→20:17)
[2018-08-04] MEDS: Potassium Chloride 10 MEQ TAB PO SCH ×2 (09:27→20:17)
[2018-08-04] MEDS: Losartan 25 MG TAB PO SCH (09:27)
[2018-08-04] MEDS: Bisacodyl 5 MG TAB PO PRN (18:27)
[2018-08-05] MEDS: traMADol HCl 50 MG TAB PO PRN (01:44)
[2018-08-05 05:45] LABS: #Basophils 0.1 thou/uL (0.0-0.2); #Eosinphils 0.2 thou/uL (0.0-0.7); #Lymphocytes 3.8 thou/uL (1.20-3.40); #Neutrophils 6.7 thou/uL (1.40-6.50); %Basophils 1.1 % (0.0-1.0); %Eosinophils 1.4 % (0.0-10.0); %Lymphocytes 32.3 % (21.0-51.0); %Monocytes 8.2 % (0.0-10.0); Mean Corpuscular HGB CONC 31.9 g/dL (32.0-36.0); Mean Corpuscular Volume 84.6 fL (78.0-98.0); Mean Platelet Volume 7.1 fL (7.4-10.4); Platelet Count 387 thou/uL (130-400); RBC Distribution Width 12.7 % (11.5-14.5); Red Blood Cell (RBC) Count 3.34 mill/uL (4.20-5.40); White Blood Cell (WBC) Count 11.8 thou/uL (4.8-10.8)
[2018-08-05 05:55] LABS: Anion Gap 13 mmol/L (10-20); BUN (Urea Nitrogen) 9 mg/dL (9.8-20.1); Calc. Creatinine Clearance 60 mL/min (70-130); Calcium 8.8 mg/dL (7.8-10.44); Carbon Dioxide 24 mmol/L (23-31); Chloride 108 mmol/L (98-107); Estimated GFR-MDRD 73; Glucose 103 mg/dL (83-110); Potassium 4.2 mmol/L (3.5-5.1); Sodium 141 mmol/L (136-145)
[2018-08-05] MEDS: Aspirin 81 mg Enteric Coated Tablet PO SCH ×2 (08:28→20:17)
[2018-08-05] MEDS: Amlodipine 5 MG TAB PO SCH (08:28)
[2018-08-05] MEDS: Losartan 25 MG TAB PO SCH (08:28)
[2018-08-05] MEDS: Multivitamin W/ Minerals 1 TAB PO SCH (08:28)
[2018-08-05] MEDS: Potassium Chloride 10 MEQ TAB PO SCH ×2 (08:29→20:17)
[2018-08-05 10:50] VITALS: BMI 26.5
--- NOTE | 2018-08-05 10:51 | PRG ---
DATE OF SERVICE: 08/05/2018 SUBJECTIVE: The patient thinks she is doing better. She is doing better with her therapy. Her pain is less. OBJECTIVE: The patient lying in bed, alert, appears very comfortable in no distress. Her temperatur e is 97.8, pulse 79, respirations 18, O2 sat 100% on room air, blood pressure 125/58. Lungs were amarjit ar. Heart, regular rate. Extremities, no edema. The incision along the right hip in the superior p ortion where she had the serous drainage has sealed over. There is no drainage. There is no redness nor surrounding induration. Her lab shows a H&H of 9 and 28.3, white cell count 11,800 with 57% segs, 32% lymphocytes, and a plat elet count of 387,000. Sodium 141, potassium 4.2, BUN 9, creatinine 0.9, GFR 73, glucose 73. ASSESSMENT: 1. Generalized weakness and deconditioning. A. Gradual decline in her general strength and conditioning due to severe arthritis in the hip. B. Contributed to now by the surgery for the hip replacement on the right on 07/22/2018. C. Improved as of 08/05/2018. 2. Severe arthritis of the right hip. A. Creating chronic pain with weightbearing. B. 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 C. Excellent postop progress as of 08/05/2018. 3. Urinary tract infection. A. Urine culture from 07/23/2018 shows E. coli, colony count greater than 100,000, organism resistan t to Cipro, but sensitive to nitrofurantoin. B. Asymptomatic as of 07/30/2018. Will complete the nitrofurantoin on 08/01/2018. 4. Hypertension, controlled. 5. Peripheral neuropathy of the lower extremities. 6. Hyperlipidemia. 7. Nausea, possibly related to the Macrobid. A. Resolved as of 07/30/2018. 8. Constipation. A. Controlled as of 08/01/2018. 9. A small amount of serosanguineous drainage from the superior aspect of the incision of the right hip as noted on 08/03/2018. A. Improved with no evidence of infection as of 08/04/2018. B. The small opening in the incision is healing over. There is no drainage as of 08/05/2018. 10. Anemia. A. Secondary to recent surgery. B. Stable with hemoglobin of 9 as of 08/05/2018. PLAN: The patient continues to improve. We will continue present care.
[2018-08-06] MEDS: Potassium Chloride 10 MEQ TAB PO SCH ×2 (08:20→20:31)
[2018-08-06] MEDS: Amlodipine 5 MG TAB PO SCH (08:20)
[2018-08-06] MEDS: Losartan 25 MG TAB PO SCH (08:20)
[2018-08-06] MEDS: Multivitamin W/ Minerals 1 TAB PO SCH (08:21)
[2018-08-06] MEDS: Aspirin 81 mg Enteric Coated Tablet PO SCH ×2 (08:21→20:31)
--- NOTE | 2018-08-06 10:12 | PRG ---
DATE OF SERVICE: 08/06/2018 SUBJECTIVE: The patient thinks she is doing better, doing better with therapy. She still has troubl e with the transfers and needs a little help, is tired afterwards. She has already been up for a wal k this morning and has done better. OBJECTIVE: The patient is alert, appears in no distress. She is sitting in her bedside chair just r eturning from the bathroom. Her temperature is 97.7, pulse 81, respirations 18, O2 saturation 98% on room air. Her blood pressure is 148/67. Lungs were clear. Heart, regular rate. Extremities, no e [place]. ASSESSMENT: 1. Generalized weakness and deconditioning. A. Gradual decline in her general strength and conditioning due to severe arthritis in the hip. B. Contributed to now by the surgery for the hip replacement on the right on 07/22/2018. C. Improved as of 08/06/2018. 2. Severe arthritis of the right hip. A. Creating chronic pain with weightbearing. B. 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 C. Excellent postop progress as of 08/06/2018. 3. Urinary tract infection. A. Urine culture from 07/23/2018 shows E. coli, colony count greater than 100,000, organism resistan t to Cipro, but sensitive to nitrofurantoin. B. Completed nitrofurantoin on 08/01/2018. Remains asymptomatic as of 08/06/2018. 4. Hypertension, controlled. 5. Peripheral neuropathy of the lower extremities. 6. Hyperlipidemia. 7. Nausea, possibly related to the Macrobid. A. Resolved as of 07/30/2018. 8. Constipation. A. Controlled as of 08/01/2018. 9. A small amount of serosanguineous drainage from the superior aspect of the incision of the right hip as noted on 08/03/2018. A. Improved with no evidence of infection as of 08/04/2018. B. The small opening in the incision is healing over. There is no drainage as of 08/05/2018. 10. Anemia. A. Secondary to recent surgery. B. Stable with hemoglobin of 9 as of 08/05/2018. PLAN: The patient is making gradual progress. Still requiring more help with transfers and still fa tigues after her exercise. She is improving. With a little longer in physical therapy I think she w ill be able to manage well at home. Anticipate will continue to work with her for at least another w [place] and then consider discharge home.
[2018-08-06] MEDS: Bisacodyl 5 MG TAB PO PRN (20:33)
[2018-08-07] MEDS: Polyethylene Glycol 3350 17 GM Packet PO SCH (08:50)
[2018-08-07] MEDS: Multivitamin W/ Minerals 1 TAB PO SCH (08:50)
[2018-08-07] MEDS: Potassium Chloride 10 MEQ TAB PO SCH ×2 (08:50→20:10)
[2018-08-07] MEDS: Aspirin 81 mg Enteric Coated Tablet PO SCH ×2 (08:51→20:10)
[2018-08-07] MEDS: Bisacodyl 5 MG TAB PO PRN (08:51)
[2018-08-07] MEDS: Amlodipine 5 MG TAB PO SCH (08:52)
[2018-08-07] MEDS: Losartan 25 MG TAB PO SCH (08:52)
--- NOTE | 2018-08-07 09:21 | PRG ---
DATE OF SERVICE: 08/07/2018 SUBJECTIVE: The patient said that she is feeling better. She is doing good with the therapy. Her b owels are moving good. OBJECTIVE: The patient is sitting up in a chair, preparing to eat breakfast. She looks very comfort able, talkative, and in no distress. Temp 97.9, pulse was 107. After exercise earlier it was 86, re spirations 20, O2 sat 98% on room air, blood pressure 160/70. Lungs are clear. Heart, regular rate. Extremities, no edema. ASSESSMENT: 1. Generalized weakness and deconditioning. A. Gradual decline in her general strength and conditioning due to severe arthritis in the hip. B. Contributed to now by the surgery for the hip replacement on the right on 07/22/2018. C. Improved as of 08/07/2018. 2. Severe arthritis of the right hip. A. Creating chronic pain with weightbearing. B. 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 C. Excellent postop progress as of 08/07/2018. 3. Urinary tract infection. A. Urine culture from 07/23/2018 shows E. coli, colony count greater than 100,000, organism resistan t to Cipro, but sensitive to nitrofurantoin. B. Completed nitrofurantoin on 08/01/2018. Remains asymptomatic as of 08/06/2018. 4. Hypertension, controlled. 5. Peripheral neuropathy of the lower extremities. 6. Hyperlipidemia. 7. Nausea, possibly related to the Macrobid. A. Resolved as of 07/30/2018. 8. Constipation. A. Controlled as of 08/07/2018. 9. A small amount of serosanguineous drainage from the superior aspect of the incision of the right hip as noted on 08/03/2018. A. Resolved. 10. Anemia. A. Secondary to recent surgery. B. Stable with hemoglobin of 9 as of 08/05/2018. PLAN: The patient continues to improve. We will continue physical therapy.
--- NOTE | 2018-08-08 14:52 | PRG ---
DATE OF SERVICE: 08/08/2018. SUBJECTIVE: The patient said she has been doing better. She is doing better with therapy. She has had no complaint. Nurses report no problems. OBJECTIVE: GENERAL: The patient is sitting in her chair. She is alert, talkative, appears in no distress. VITAL SIGNS: Her temperature is 97.6, pulse 76, respirations 18, O2 sat 95% on room air, blood press ure 142/65, lying down. LUNGS: Clear. HEART: Regular rate. EXTREMITIES: No edema. ASSESSMENT: 1. Generalized weakness and deconditioning. A. Gradual decline in her general strength and conditioning due to severe arthritis in the hip. B. Contributed to now by the surgery for the hip replacement on the right on 07/22/2018. C. Improved as of 08/08/2018. 2. Severe arthritis of the right hip. A. Creating chronic pain with weightbearing. B. 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 C. Excellent postop progress as of 08/08/2018. 3. Urinary tract infection. A. Urine culture from 07/23/2018 shows E. coli, colony count greater than 100,000, organism resistan t to Cipro, but sensitive to nitrofurantoin. B. Completed nitrofurantoin on 08/01/2018. Remains asymptomatic as of 08/06/2018. 4. Hypertension, controlled. 5. Peripheral neuropathy of the lower extremities. 6. Hyperlipidemia. 7. Nausea, possibly related to the Macrobid. A. Resolved as of 07/30/2018. 8. Constipation. A. Controlled as of 08/08/2018. 9. A small amount of serosanguineous drainage from the superior aspect of the incision of the right hip as noted on 08/03/2018. A. Resolved. 10. Anemia. A. Secondary to recent surgery. B. Stable with hemoglobin of 9 as of 08/05/2018. PLAN: The patient is doing very well and continued to progress. We will continue present care. Michele do PT and OT.
[2018-08-08] MEDS: Amlodipine 5 MG TAB PO SCH (15:50)
[2018-08-08] MEDS: Aspirin 81 mg Enteric Coated Tablet PO SCH ×2 (15:50→20:39)
[2018-08-08] MEDS: Losartan 25 MG TAB PO SCH (15:51)
[2018-08-08] MEDS: Multivitamin W/ Minerals 1 TAB PO SCH (15:51)
[2018-08-08] MEDS: Potassium Chloride 10 MEQ TAB PO SCH ×2 (15:51→20:39)
[2018-08-08] MEDS: Polyethylene Glycol 3350 17 GM Packet PO SCH (15:51)
[2018-08-09] MEDS: traMADol HCl 50 MG TAB PO PRN (02:33)
[2018-08-09] MEDS: Aspirin 81 mg Enteric Coated Tablet PO SCH ×2 (08:05→20:41)
[2018-08-09] MEDS: Multivitamin W/ Minerals 1 TAB PO SCH (08:05)
[2018-08-09] MEDS: Potassium Chloride 10 MEQ TAB PO SCH ×2 (08:05→20:41)
[2018-08-09] MEDS: Polyethylene Glycol 3350 17 GM Packet PO SCH (08:05)
[2018-08-09] MEDS: Amlodipine 5 MG TAB PO SCH (08:06)
[2018-08-09] MEDS: Losartan 25 MG TAB PO SCH (08:06)
[2018-08-10] MEDS: Potassium Chloride 10 MEQ TAB PO SCH ×2 (09:08→20:44)
[2018-08-10] MEDS: Losartan 25 MG TAB PO SCH (09:09)
[2018-08-10] MEDS: Aspirin 81 mg Enteric Coated Tablet PO SCH ×2 (09:09→20:45)
[2018-08-10] MEDS: Polyethylene Glycol 3350 17 GM Packet PO SCH (09:09)
[2018-08-10] MEDS: Multivitamin W/ Minerals 1 TAB PO SCH (09:09)
[2018-08-10] MEDS: Amlodipine 5 MG TAB PO SCH (09:09)
[2018-08-11] MEDS: Naproxen 500 MG TAB PO PRN ×2 (02:16→20:14)
[2018-08-11] MEDS: Polyethylene Glycol 3350 17 GM Packet PO SCH (08:19)
[2018-08-11] MEDS: Aspirin 81 mg Enteric Coated Tablet PO SCH ×2 (08:20→20:14)
[2018-08-11] MEDS: Multivitamin W/ Minerals 1 TAB PO SCH (08:20)
[2018-08-11] MEDS: Potassium Chloride 10 MEQ TAB PO SCH ×2 (08:20→20:14)
[2018-08-11] MEDS: Amlodipine 5 MG TAB PO SCH (08:20)
[2018-08-11] MEDS: Losartan 25 MG TAB PO SCH (08:20)
--- NOTE | 2018-08-11 09:51 | PRG ---
DATE OF SERVICE: 08/09/2018 SUBJECTIVE: The patient says she is doing fine. She has no complaints. OBJECTIVE: The patient lying in bed, appears comfortable, in no distress. Her temperature is 98.2, pulse 92, respirations 18, O2 sat 100% on room air, blood pressure 152/63. Lungs were clear. Heart, regular rate. Incision healing. There is no drainage, no surrounding redness. Lower extremities: No edema, no areas of tenderness. ASSESSMENT: 1. Generalized weakness and deconditioning. A. Gradual decline in her general strength and conditioning due to severe arthritis in the hip. B. Contributed to now by the surgery for the hip replacement on the right on 07/22/2018. C. Improved as of 08/09/2018. 2. Severe arthritis of the right hip. A. Creating chronic pain with weightbearing. B. 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 C. Excellent postop progress as of 08/09/2018. 3. Urinary tract infection. A. Urine culture from 07/23/2018 shows E. coli, colony count greater than 100,000, organism resistan t to Cipro, but sensitive to nitrofurantoin. B. Completed nitrofurantoin on 08/01/2018. Remains asymptomatic as of 08/06/2018. 4. Hypertension, controlled. 5. Peripheral neuropathy of the lower extremities. 6. Hyperlipidemia. 7. Nausea, possibly related to the Macrobid. A. Resolved as of 07/30/2018. 8. Constipation. A. Controlled as of 08/08/2018. 9. A small amount of serosanguineous drainage from the superior aspect of the incision of the right hip as noted on 08/03/2018. A. Resolved. 10. Anemia. A. Secondary to recent surgery. B. Stable with hemoglobin of 9 as of 08/05/2018. PLAN: Continue PT/OT.
--- NOTE | 2018-08-11 09:52 | PRG ---
DATE OF SERVICE: 08/11/2018 SUBJECTIVE: The patient said she is doing better. She is feeling better, she is making further prog ress. She did ask for a prescription for a bedside commode, shower chair and walker which we will gi ve her. OBJECTIVE: The patient has just come out of the bathroom and was able to walk to her chair with a wa lker. She is sitting. She looks very comfortable and in no distress. Her temperature 97.7, pulse 8 3, respirations 18, O2 saturation 98% on room air, blood pressure 128/61. Lungs were clear. Heart, regular rate. Extremities, no edema. ASSESSMENT: 1. Generalized weakness and deconditioning. A. Gradual decline in her general strength and conditioning due to severe arthritis in the hip. B. Contributed to now by the surgery for the hip replacement on the right on 07/22/2018. C. Improved as of 08/11/2018. 2. Severe arthritis of the right hip. A. Creating chronic pain with weightbearing. B. 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 C. Excellent postop progress as of 08/11/2018. 3. Urinary tract infection. A. Urine culture from 07/23/2018 shows E. coli, colony count greater than 100,000, organism resistan t to Cipro, but sensitive to nitrofurantoin. B. Completed nitrofurantoin on 08/01/2018. Remains asymptomatic as of 08/06/2018. 4. Hypertension, controlled. 5. Peripheral neuropathy of the lower extremities. 6. Hyperlipidemia. 7. Nausea, possibly related to the Macrobid. A. Resolved as of 07/30/2018. 8. Constipation. A. Controlled as of 08/11/2018. 9. A small amount of serosanguineous drainage from the superior aspect of the incision of the right hip as noted on 08/03/2018. A. Resolved. 10. Anemia. A. Secondary to recent surgery. B. Stable with hemoglobin of 9 as of 08/05/2018. PLAN: Continue PT. Continue OT. I have given her a prescription for a walker with wheels, bedside commode and shower chair. I anticipate her going home on Saturday08/15/2018.
[2018-08-12] MEDS: Potassium Chloride 10 MEQ TAB PO SCH ×2 (08:34→20:42)
[2018-08-12] MEDS: Polyethylene Glycol 3350 17 GM Packet PO SCH (08:34)
[2018-08-12] MEDS: Multivitamin W/ Minerals 1 TAB PO SCH (08:34)
[2018-08-12] MEDS: Losartan 25 MG TAB PO SCH (08:35)
[2018-08-12] MEDS: Amlodipine 5 MG TAB PO SCH (08:35)
[2018-08-12] MEDS: Aspirin 81 mg Enteric Coated Tablet PO SCH ×2 (08:36→20:42)
--- NOTE | 2018-08-12 14:30 | PRG ---
DATE OF SERVICE: 08/12/2018 SUBJECTIVE: The patient thinks she is doing good. Therapy and occupational therapy think she is fransisca ing good advancement and should be able to manage at home at the end of the week; Saturday, his anticip ated date for discharge. OBJECTIVE: GENERAL: The patient is sitting up in a chair. She is alert, appears in no distress. VITAL SIGNS: Show a temperature 98.9, pulse 84, respirations 18, O2 sat 97% on room air, blood press ure 134/68. LUNGS: Clear. HEART: Regular rate. EXTREMITIES: No edema. ASSESSMENT: 1. Generalized weakness and deconditioning. A. Gradual decline in her general strength and conditioning due to severe arthritis in the hip. B. Contributed to now by the surgery for the hip replacement on the right on 07/22/2018. C. Improved as of 08/12/2018. 2. Severe arthritis of the right hip. A. Creating chronic pain with weightbearing. B. 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 C. Excellent postop progress as of 08/12/2018. 3. Urinary tract infection. A. Urine culture from 07/23/2018 shows E. coli, colony count greater than 100,000, organism resistan t to Cipro, but sensitive to nitrofurantoin. B. Completed nitrofurantoin on 08/01/2018. Remains asymptomatic as of 08/06/2018. 4. Hypertension, controlled. 5. Peripheral neuropathy of the lower extremities. 6. Hyperlipidemia. 7. Nausea, possibly related to the Macrobid. A. Resolved as of 07/30/2018. 8. Constipation. A. Controlled as of 08/11/2018. 9. A small amount of serosanguineous drainage from the superior aspect of the incision of the right hip as noted on 08/03/2018. A. Resolved. 10. Anemia. A. Secondary to recent surgery. B. Stable with hemoglobin of 9 as of 08/05/2018. PLAN: Continue PT. Continue OT. Discharge on 08/15/2018.
[2018-08-13] MEDS: Multivitamin W/ Minerals 1 TAB PO SCH (09:05)
[2018-08-13] MEDS: Polyethylene Glycol 3350 17 GM Packet PO SCH (09:05)
[2018-08-13] MEDS: Losartan 25 MG TAB PO SCH (09:05)
[2018-08-13] MEDS: Aspirin 81 mg Enteric Coated Tablet PO SCH ×2 (09:05→20:05)
[2018-08-13] MEDS: Potassium Chloride 10 MEQ TAB PO SCH ×2 (09:06→20:05)
[2018-08-13] MEDS: Amlodipine 5 MG TAB PO SCH (09:06)
--- NOTE | 2018-08-13 11:02 | PRG ---
DATE OF SERVICE: 08/13/2018 SUBJECTIVE: The patient said she is feeling good. She is making further progress with her physical therapy. OBJECTIVE: The patient is sitting up in chair, preparing for her showers. She is alert, talkative, appears in no distress. Her temperature is 97.9, pulse is 82, blood pressure 134/68, respirations 18 , O2 saturation 97%. Lungs clear. Heart, regular rate. ASSESSMENT: 1. Generalized weakness and deconditioning. A. Gradual decline in her general strength and conditioning due to severe arthritis in the hip. B. Contributed to now by the surgery for the hip replacement on the right on 07/22/2018. C. Improved as of 08/13/2018. 2. Severe arthritis of the right hip. A. Creating chronic pain with weightbearing. B. 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 C. Excellent postop progress as of 08/13/2018. 3. Urinary tract infection. A. Urine culture from 07/23/2018 shows E. coli, colony count greater than 100,000, organism resistan t to Cipro, but sensitive to nitrofurantoin. B. Completed nitrofurantoin on 08/01/2018. Remains asymptomatic as of 08/06/2018. 4. Hypertension, controlled. 5. Peripheral neuropathy of the lower extremities. 6. Hyperlipidemia. 7. Nausea, possibly related to the Macrobid. A. Resolved as of 07/30/2018. 8. Constipation. A. Controlled as of 08/11/2018. 9. A small amount of serosanguineous drainage from the superior aspect of the incision of the right hip as noted on 08/03/2018. A. Resolved. 10. Anemia. A. Secondary to recent surgery. B. Stable with hemoglobin of 9 as of 08/05/2018. PLAN: Continue present care. Continue PT and OT and planning on discharge to her home on Saturday. The patient says that she does not feel like she needs home health, but would like to bri nue physical therapy at the [facility] and this will be arranged.
[2018-08-14] MEDS: traMADol HCl 50 MG TAB PO PRN ×2 (01:34→20:21)
[2018-08-14] MEDS: Polyethylene Glycol 3350 17 GM Packet PO SCH (08:50)
[2018-08-14] MEDS: Losartan 25 MG TAB PO SCH (08:51)
[2018-08-14] MEDS: Aspirin 81 mg Enteric Coated Tablet PO SCH ×2 (08:51→20:22)
[2018-08-14] MEDS: Potassium Chloride 10 MEQ TAB PO SCH ×2 (08:51→20:22)
[2018-08-14] MEDS: Multivitamin W/ Minerals 1 TAB PO SCH (08:51)
[2018-08-14] MEDS: Amlodipine 5 MG TAB PO SCH (08:51)
--- NOTE | 2018-08-14 09:14 | PRG ---
DATE OF SERVICE: 08/14/2018 SUBJECTIVE: The patient said she is doing good. This morning she is up in the physical therapy room working on the [employer], working her arms and legs. She has no complaints. OBJECTIVE: The patient is alert, appears very comfortable and in no distress. Temp 97.7, pulse 75, respirations 18, O2 saturation 98% on room air, blood pressure 129/58. Lungs are clear. Heart, regu lar rate. Extremities, no edema. ASSESSMENT: 1. Generalized weakness and deconditioning. A. Gradual decline in her general strength and conditioning due to severe arthritis in the hip. B. Contributed to now by the surgery for the hip replacement on the right on 07/22/2018. C. Improved as of 08/14/2018. 2. Severe arthritis of the right hip. A. Creating chronic pain with weightbearing. B. 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 C. Excellent postop progress as of 08/14/2018. 3. Urinary tract infection. A. Urine culture from 07/23/2018 shows E. coli, colony count greater than 100,000, organism resistan t to Cipro, but sensitive to nitrofurantoin. B. Completed nitrofurantoin on 08/01/2018. Remains asymptomatic as of 08/06/2018. 4. Hypertension, controlled. 5. Peripheral neuropathy of the lower extremities. 6. Hyperlipidemia. 7. Nausea, possibly related to the Macrobid. A. Resolved as of 07/30/2018. 8. Constipation. A. Controlled as of 08/14/2018. 9. A small amount of serosanguineous drainage from the superior aspect of the incision of the right hip as noted on 08/03/2018. A. Resolved. 10. Anemia. A. Secondary to recent surgery. B. Stable with hemoglobin of 9 as of 08/05/2018. PLAN: Continue present care. Continue PT. Anticipate discharge tomorrow to home with outpatient PT .
[2018-08-14 14:00] LABS: Bilirubin Negative (Negative); Blood, Urine Negative (Negative); Clarity Slightly Cloudy (Clear); Glucose, Urine (Dipstick) Negative (Negative); Leukocyte Small (Negative); Nitrite Negative (Negative); Protein, Urine (Dipstick) Negative (Neg-Trace); Specific Gravity, Urine 1.025 (1.005-1.030); Urobilinogen 0.2 mg/dL (0.2-1.0)
[2018-08-14 14:05] LABS: Bacteria/HPF 4+ HPF (None Seen); Squamous Epithelial 0-3 HPF (0-3); WBC/HPF 21-50 HPF (0-3)
[2018-08-14] MEDS: Ondansetron ODT 4 MG TAB PO PRN (15:08)
[2018-08-15 07:45] VITALS: BP 104/55; TEMP 97.9
[2018-08-15] MEDS: Losartan 25 MG TAB PO SCH (09:11)
[2018-08-15] MEDS: Multivitamin W/ Minerals 1 TAB PO SCH (09:11)
[2018-08-15] MEDS: Potassium Chloride 10 MEQ TAB PO SCH (09:11)
[2018-08-15] MEDS: Amlodipine 5 MG TAB PO SCH (09:11)
[2018-08-15] MEDS: Aspirin 81 mg Enteric Coated Tablet PO SCH (09:11)
[2018-08-15] MEDS: Polyethylene Glycol 3350 17 GM Packet PO SCH (09:12)
--- NOTE | 2018-08-15 10:24 | DIS ---
FINAL DIAGNOSES: 1. Generalized weakness and deconditioning. A. Gradual decline in her general strength and conditioning due to severe arthritis in the hip. B. Contributed to now by the surgery for the hip replacement on the right on . C. Improved. Ambulating up to 150 feet with a rolling walker. Transferring independently as of 08/15/2018. 2. Severe arthritis of the right hip. A. Creating chronic pain with weightbearing. B. 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 C. Excellent postop progress as of 08/15/2018. 3. Urinary tract infection. A. Urine culture from 07/23/2018 shows E. coli, colony count greater than 100, 000, organism resistant to Cipro, but sensitive to nitrofurantoin. B. Completed nitrofurantoin on 08/01/2018. Remains asymptomatic as of 2017. C. Recurrent urinary tract infection as of 08/15/2018. Afebrile. Culture pending. Treated it as outpatient with nitrofurantoin. 4. Hypertension, controlled. 5. Peripheral neuropathy of the lower extremities. 6. Hyperlipidemia. 7. Nausea, possibly related to the Macrobid. A. Resolved as of 07/30/2018. 8. Constipation. A. Controlled as of 08/14/2018. 9. A small amount of serosanguineous drainage from the superior aspect of the incision of the right hip as noted on 08/03/2018. A. Resolved. 10. Anemia. A. Secondary to recent surgery. B. Stable with hemoglobin of 9 as of 08/05/2018. SUMMARY: The patient is an 83-year-old [place] female who has a history of hypertension, generalized osteoarthritis, particularly with advanced arthritic change in the right hip that are symptomatic. The right hip arthritis has been causing pain with ambulation and has progressively gotten worse to where she has agreed to a hip replacement. The patient was hospitalized at [facility] from 07/22/2018 where she underwent a right total hip arthroplasty by Dr. Leonid Romo on 07/22/2018. Her postop course was unremarkable and she had been up in a chair and ambulating with a walker short distances. She did have a urinary tract infection that was initially treated with Cipro. The E. coli was resistant to the Cipro, but sensitive to the nitrofurantoin, which she was switched to and she completed a 10-day course here at [facility]. The patient was transferred to [facility] on 07/25/2018 for general weakness and deconditioning and gait training. HOSPITAL COURSE: The patient initially presented to the hospital very weak and had some nausea that resolved. Her weakness gradually improved during her hospitalization. Physical therapy and OT work with her. By the time of her discharge, she was ambulating with a rolling walker up to 150 feet twice a day and was transferring independently. The patient initially had admitted with a urinary tract infection for which treatment with Cipro had been initiated at [facility], culture indicated that the E. coli was resistant to the Cipro, but sensitive to nitrofurantoin. She was switched to the nitrofurantoin and completed a 10-day course of this with resolution of the symptoms. A day prior to her discharge, she began to develop some urinary frequency, but no dysuria. Her urine showed 20-50 WBCs per high power field and 4+ bacteria. The patient will be treated again for recurrent urinary tract infection with nitrofurantoin. This will be done as an outpatient and followed up also as an outpatient. The patient's incision healed well during her hospital stay, she did develop a little serosanguineous drainage from the most superior aspect of the wound that resolved. There was no redness or tenderness around the wound. The patient's blood pressure remained under good control. Her pain initially was managed with tramadol, but later was well managed with acetaminophen. She has anemia from her recent surgery that has been stable and will be followed as an outpatient. Her last hemoglobin was on 08/05/2018 and was 9 and this will be followed up as an outpatient. The patient is doing very well and on 2017 her condition was such, it felt that she could now be managed at home. She will be staying with 2 of her daughters. Home health will see patient and arrange in home PT/OT. Also have ordered a walker for her charles and shower chair and elevated comode seat since she has trouble standing from a low position. DIET: Regular diet. No added salt. ACTIVITIES: Ambulate with the use of a walker. MEDICATIONS: Macrobid 100 mg b.i.d. for 10 days, acetaminophen 325 mg 2 every 4 hours p.r.n., amlodipine 5 mg daily, aspirin 81 mg daily, Dulcolax suppository 10 mg daily p.r.n. Theragran M vitamins 1 daily, losartan 50 mg daily, naproxen 500 mg b.i.d. p.r.n., pantoprazole 40 mg daily, MiraLax 17 grams , 8 ounces of water daily. Tramadol 50 mg 1 every 8 hours if needed for pain. FOLLOW UP: Home [facility] with [facility] to include in home PT/OT. Follow up in my office in 2 weeks with a CBC and a basic metabolic panel. CODE STATUS: Full code. MTDD
== END 2018-08-15 10:40 | disposition home health service (06) | DRG 948 ==
LOC: MADMS 11:29
PROVIDERS: ADMIT Family Medicine; ATTEND Family Medicine
DX: R53.1 Weakness (principal); N39.0 Urinary tract infection, site not specified; Z79.2 Long term (current) use of antibiotics; I10 Essential (primary) hypertension; M15.9 Polyosteoarthritis, unspecified; R26.9 Unspecified abnormalities of gait and mobility; Z96.641 Presence of right artificial hip joint; G62.9 Polyneuropathy, unspecified; M47.897 Other spondylosis, lumbosacral region; E78.5 Hyperlipidemia, unspecified; K59.00 Constipation, unspecified; D64.9 Anemia, unspecified
CPT/HCPCS: 36415; 80048; 80053; 81001; 85025; G8978-GP-CK; G8979-GP-CI; G8987-GO-CL; G8988-GO-CI; Q0162

== ENCOUNTER 2018-08-28 12:14 | Outpatient (CLI) | payer MEDICARE ==
[2018-08-28 13:38] LABS: #Basophils 0.1 thou/uL (0.0-0.2); #Eosinphils 0.3 thou/uL (0.0-0.7); #Lymphocytes 2.6 thou/uL (1.20-3.40); #Monocytes 0.6 thou/uL (0.11-0.59); #Neutrophils 3.5 thou/uL (1.40-6.50); %Basophils 1.8 % (0.0-1.0); %Eosinophils 3.6 % (0.0-10.0); %Lymphocytes 36.7 % (21.0-51.0); %Monocytes 8.3 % (0.0-10.0); %Neutrophils 49.7 % (42.0-75.0); Hemoglobin 10.1 g/dL (12.0-16.0); Mean Corpuscular HGB CONC 30.6 g/dL (32.0-36.0); Mean Corpuscular Hemoglobin 26.3 pg (27.0-31.0); Mean Corpuscular Volume 85.8 fL (78.0-98.0); Mean Platelet Volume 7.1 fL (7.4-10.4); Platelet Count 278 thou/uL (130-400); RBC Distribution Width 13.8 % (11.5-14.5); Red Blood Cell (RBC) Count 3.85 mill/uL (4.20-5.40)
[2018-08-28 14:01] LABS: ALT (SGPT) 7 U/L (8-55); AST (SGOT) 13 U/L (5-34); Albumin 3.8 g/dL (3.4-4.8); Alkaline Phosphatase 132 U/L (40-150); Anion Gap 13 mmol/L (10-20); BUN (Urea Nitrogen) 17 mg/dL (9.8-20.1); Bilirubin, Direct 0.2 mg/dL (0.1-0.3); Bilirubin, Total 0.3 mg/dL (0.2-1.2); Calc. Creatinine Clearance 0 mL/min (70-130); Calcium 9.5 mg/dL (7.8-10.44); Carbon Dioxide 24 mmol/L (23-31); Cardiac Risk 3.2 (Less than 4.5); Chloride 109 mmol/L (98-107); Cholesterol 160 mg/dl (< 200 Desired); Estimated GFR-MDRD 58; Glucose 88 mg/dL (83-110); HDL Cholesterol 50 mg/dL (>60 Neg Risk); LDL Cholesterol, Calculated 89 mg/dL; Potassium 4.9 mmol/L (3.5-5.1); Protein, Total 7.3 g/dL (6.0-8.3); Sodium 141 mmol/L (136-145); Triglycerides 104 mg/dL (Less than 150)
--- NOTE | 2018-08-28 14:20 | RAD ---
TWO VIEWS OF RIGHT HIP: Date: 08-28-18 Comparison: 07-22-18 History: Total hip arthroplasty. FINDINGS: There is a total hip arthroplasty on the right. There is a cerclage wire with an associated lateral f ixation plate in the region of the proximal right femur, unchanged in configuration when compared to pelvic radiograph 07-22-18. There is no displaced fracture or evidence of dislocation. IMPRESSION: Stable post-operative hardware as above. POS: OFF
== END 2018-08-28 12:15 ==
LOC: MADLABBHPM 12:14
PROVIDERS: ATTEND Family Medicine
DX: I12.9 Hypertensive chronic kidney disease with stage 1 through stage 4 chronic kidney disease, or unspecified chronic kidney disease (principal); N18.9 Chronic kidney disease, unspecified; E78.5 Hyperlipidemia, unspecified; R94.6 Abnormal results of thyroid function studies; Z96.641 Presence of right artificial hip joint
CPT/HCPCS: 36415; 80048; 80061; 80076; 84443; 85025

== ENCOUNTER 2019-08-19 11:22 | Emergency (ER) | payer MEDICARE ==
--- NOTE | 2019-08-19 13:00 | CT ---
CT Brain WO Con: 08/19/2019 12:21 PM CLINICAL HISTORY: Fall. COMPARISON: 09/24/2010 FINDINGS: Hemorrhage: None. Ventricular system: Normal in size and morphology for the patient's age. 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 Midline shift: None. Mass: No mass effect. Calvarium: Normal. Prominent frontal scalp hematoma. Visualized Paranasal sinuses: Scattered mild inflammatory mucosal thickening. IMPRESSION: No acute intracranial abnormalities. Prominent frontal scalp hematoma. Correlate clinically.
--- NOTE | 2019-08-19 13:06 | RAD ---
Exam: One view pelvis HISTORY: Fall. Pain. FINDINGS: Sacral ala appear to be intact. Symmetric sacroiliac joints. Bony pelvis appears to be intact. Stable postsurgical changes involving the right hip. Stable arthrop lasty, cerclage wire and fixation plate. Stable hypertrophic changes along the right greater trochanter. Stable severe degenerative change at the left hip. IMPRESSION: No posttraumatic change.
--- NOTE | 2019-08-19 13:07 | RAD ---
Exam: Chest one view HISTORY:Patient fell earlier. Pain. Comparison: 12/10/2017 FINDINGS: Cardiac silhouette: Normal Aorta: Atherosclerosis Pulmonary vessels: Normal Costophrenic angles: Clear LUNGS: No masses or consolidation. Pneumothorax: None Osseous abnormalities: Old right rib fractures are identified. IMPRESSION: No acute cardiopulmonary process.
--- NOTE | 2019-08-19 13:13 | CT ---
Exam: CT cervical spine without contrast HISTORY: Trauma. Pain. COMPARISON: None FINDINGS: No craniocervical dissociation. Appropriate alignment of the lateral masses of C1 and C2. Intact odon toid process Appropriate alignment of the facets. Extensive osteophyte formation throughout the cervical spine. Soft tissue neck structures: No mass, lymphadenopathy or hematoma. No prevertebral soft tissue swelli ng. Heterogeneous thyroid gland with peripherally calcified lesion in the left thyroid lobe. Upper mediastinum and lung apices: Left thyroid lobe appears to be retrosternal. There appears to be rightward deviation of the trachea and esophagus. Is also incompletely evaluated soft tissue mass involving the anterior mediastinum, near the thoracic inlet. Correlation made with CT from 03/18/2013 does demonstrate this mass. Refer to that exam report for further detail. Central spinal canal: Varying degrees of central canal stenosis or neural foraminal narrowing due to degenerative change. Limited evaluation due to technique. Vertebral bodies: Cervical spine vertebral body height is maintained. No fracture. IMPRESSION: 1. No fracture. 2. Atypical appearance of the thyroid gland with possible left thyroid lobe being retrosternal. Nonem ergent thyroid ultrasound is recommended. Anterior mediastinal mass, incompletely evaluated. Refer to neck CT report from February 2013 for further detail. 3. Extensive osteophyte formation throughout the cervical spine. There are varying degrees of central canal stenosis and neural foraminal narrowing due to degenerative change.
[2019-08-19 13:18] LABS: Hemoglobin 11.5 g/dL (12.0-16.0); Mean Corpuscular HGB CONC 31.3 g/dL (32.0-36.0); Mean Corpuscular Volume 86.2 fL (78.0-98.0); Mean Platelet Volume 7.8 fL (7.4-10.4); Platelet Count 222 thou/uL (130-400); RBC Distribution Width 13.3 % (11.5-14.5); Red Blood Cell (RBC) Count 4.26 mill/uL (4.20-5.40); White Blood Cell (WBC) Count 7.3 thou/uL (4.8-10.8)
--- NOTE | 2019-08-19 13:19 | CT ---
MAXILLOFACIAL CT WITHOUT CONTRAST: HISTORY: Fall. Pain. Injury. COMPARISON: None. FINDINGS: The visualized calvarium is intact. Mild mucosal thickening of the paranasal sinuses. Adequate mastoi d air cell aeration. Bilateral ocular lens implants are appropriately located. Both globes are intact. Retrobulbar fat is preserved. Symmetric attenuation of the optic nerves and ocular rectus muscles. Coronal reformatted images demonstrate patent bilateral osteomeatal complexes. The osseous margins of the orbits and sinuses are maintained. Maxilla and mandible are intact. There is right frontal and right periorbital hematoma and swelling. Degenerative changes of the upper cervical spine are noted. Bilateral zygomatic arches are intact. IMPRESSION: 1. No maxillofacial fracture. 2. Right frontal and right periorbital hematoma/swelling. Transcribed Date/Time: 08/19/2019 1:35 PM
[2019-08-19 13:26] LABS: Band 2 % (5-11); Lymphocytes 41 % (21-51); MDiff Complete? YES; Monocytes 4 % (0-10); Neutrophil 53 % (42-75)
[2019-08-19 13:27] LABS: Bilirubin Negative (Negative); Blood, Urine Negative (Negative); Clarity Slightly Cloudy (Clear); Glucose, Urine (Dipstick) Negative (Negative); Leukocyte Small (Negative); Nitrite Positive (Negative); Protein, Urine (Dipstick) Negative (Neg-Trace); Urobilinogen 0.2 mg/dL (Less than 2)
[2019-08-19 13:28] LABS: Prothrombin Time 13.1 SEC (12.0-14.7)
[2019-08-19 13:33] LABS: Bacteria/HPF 2+ HPF (None Seen); RBC/HPF 0-3 HPF (0-3); Squamous Epithelial 0-3 HPF (0-3)
[2019-08-19 13:38] LABS: ALT (SGPT) 8 U/L (8-55); AST (SGOT) 14 U/L (5-34); Alkaline Phosphatase 73 U/L (40-110); Anion Gap 11 mmol/L (10-20); BUN (Urea Nitrogen) 13 mg/dL (9.8-20.1); Bilirubin, Total 0.2 mg/dL (0.2-1.2); Calc. Creatinine Clearance 0 mL/min (70-130); Calcium 9.8 mg/dL (7.8-10.44); Carbon Dioxide 28 mmol/L (23-31); Chloride 108 mmol/L (98-107); Estimated GFR-MDRD 69; Globulin 3.4 g/dL (2.4-3.5); Glucose 105 mg/dL (83-110); Potassium 4.2 mmol/L (3.5-5.1); Protein, Total 7.4 g/dL (6.0-8.3); Sodium 143 mmol/L (136-145)
--- NOTE | 2019-08-19 14:34 | RAD ---
RIGHT HIP TWO VIEWS: HISTORY: Fall earlier today with right hip pain. COMPARISON: 08/28/2018 FINDINGS: Two views of the right hip show the patient to be status post right hip arthroplasty without perihard daigle lucency or fracture. The visualized pelvic bones are unremarkable. There is hypertrophic bone al lor the greater trochanter of the femur. IMPRESSION: Status post right hip arthroplasty without evidence of acute osseous abnormality. POS: C
== END 2019-08-19 14:15 | disposition home or self-care (01) ==
LOC: MADERS 11:22
DX: S00.11XA Contusion of right eyelid and periocular area, initial encounter (principal); N39.0 Urinary tract infection, site not specified; I10 Essential (primary) hypertension; W19.XXXA Unspecified fall, initial encounter
CPT/HCPCS: 36415; 70450; 70486; 71045; 72125; 72170; 80053; 81003; 81015; 85025; 85610

== ENCOUNTER 2019-10-19 18:41 | Emergency (ER) | payer MEDICARE ==
[~2019-10-19 18:41] MED LIST: Iopamidol 370 76% 100 ML VIAL ONE; Sodium Chloride 0.9% 500 ML BAG ONE
[2019-10-19 19:03] LABS: Bilirubin Negative (Negative); Blood, Urine Small (Negative); Clarity Cloudy (Clear); Glucose, Urine (Dipstick) Negative (Negative); Leukocyte Negative (Negative); Nitrite Negative (Negative); Protein, Urine (Dipstick) 100 mg/dL (Neg-Trace); Urobilinogen 0.2 mg/dL (Less than 2)
[2019-10-19] MEDS ORDERED: Fentanyl 100 MCG/2 ML VIAL ONE (19:08)
[2019-10-19 19:09] LABS: Bacteria/HPF 4+ HPF (None Seen); Squamous Epithelial 0-3 HPF (0-3)
[2019-10-19] MEDS ORDERED: Ondansetron PF 4 MG/2 ML Vial ONE (19:11)
[2019-10-19 19:28] LABS: #Lymphocytes 1.7 thou/uL (1.20-3.40); #Monocytes 0.4 thou/uL (0.11-0.59); #Neutrophils 5.2 thou/uL (1.40-6.50); %Basophils 0.5 % (0.0-1.0); %Lymphocytes 23.2 % (21.0-51.0); %Monocytes 5.9 % (0.0-10.0); %Neutrophils 70.4 % (42.0-75.0); Hemoglobin 13.4 g/dL (12.0-16.0); Mean Corpuscular Hemoglobin 27.2 pg (27.0-31.0); Mean Corpuscular Volume 90.6 fL (78.0-98.0); Platelet Count 263 thou/uL (130-400); RBC Distribution Width 13.6 % (11.5-14.5); Red Blood Cell (RBC) Count 4.92 mill/uL (4.20-5.40); White Blood Cell (WBC) Count 7.4 thou/uL (4.8-10.8)
[2019-10-19 19:32] LABS: RBC Morphology Normal
[2019-10-19 19:47] LABS: ALT (SGPT) 9 U/L (8-55); AST (SGOT) 16 U/L (5-34); Albumin 4.7 g/dL (3.4-4.8); Alkaline Phosphatase 82 U/L (40-110); Anion Gap 17 mmol/L (10-20); BUN (Urea Nitrogen) 14 mg/dL (9.8-20.1); Bilirubin, Total 0.5 mg/dL (0.2-1.2); Calc. Creatinine Clearance 0 mL/min (70-130); Calcium 10.1 mg/dL (7.8-10.44); Carbon Dioxide 23 mmol/L (23-31); Chloride 103 mmol/L (98-107); Estimated GFR-MDRD 67; Globulin 3.9 g/dL (2.4-3.5); Glucose 124 mg/dL (83-110); Lipase 43 U/L (8-78); Potassium 3.7 mmol/L (3.5-5.1); Protein, Total 8.6 g/dL (6.0-8.3); Sodium 139 mmol/L (136-145)
--- NOTE | 2019-10-19 21:31 | CT ---
CT ABDOMEN AND PELVIS WITH IV CONTRAST: History: Abdominal pain and N/V. Comparison: None. FINDINGS: There is a tubal appearing low density structure seen adjacent to the lower thoracic spine on the rig ht which was also seen on prior CTs of the thorax in 2011 and 2012. On those examinations, this findi ng appeared to represent a vessel as opposed to a lesion. Again noted is herniation of a small amount of fat at the posteromedial aspect of the right hemidiaphragm. Volume loss is seen at each lung base . Vascular calcifications are seen in the coronary arteries as well as involving the abdominal aorta an d iliac arteries. Post-surgical changes related to cholecystectomy are noted with multiple surgical clips in the region of the gallbladder fossa, also seen on the study in 2013. There is a low density lesion again seen in the lateral segment of the left hepatic lobe. This does m easure similar in size to prior exams measuring 1.5 cm with attenuation coefficient likely attributab le to a small cyst. The spleen, pancreas, and right adrenal gland demonstrate a normal CT appearance. There is a low density nodule again seen in the left lobe of the thyroid gland which was also seen on prior studies, this did demonstrate attenuation coefficient on noncontrasted CTA exam of 2013 sugges tive of an adrenal adenoma. There is a exophytic 2.6 cm low attenuation lesion at the superior pole right kidney compatible with a cyst. Tiny subcentimeter too small to characterize hypodense lesions are seen in the midportion of each in the inferior pole left kidney. There is dilatation of the left renal pelvis. There is a large hypodense cystic appearing structure i n the region of the right renal hilum. A parapelvic cyst was seen in this region on CT thorax on 09-29 which is now larger in size measuring 4.1 cm and previously measured 2.7 cm. No enhancing renal l esion is seen. There is a right total hip prosthesis with cerclage wires and lateral plate resulting in significant streak artifact. This limits evaluation of the pelvis. The urinary bladder is grossly normal in appea [place]. Multiple phleboliths are seen in the pelvis. There is colonic diverticulosis with a small amount of retained fecal material seen throughout the co oswaldo. Loops of small bowel are normal in caliber. The appendix is not definitely visualized, but there are no secondary signs to suggest appendicitis. No free fluid, fluid collection or lymphadenopathy is seen in the abdomen or pelvis. Multilevel degenerative changes are seen in the thoracic and lumbar spine with calcification of anter ior and longitudinal ligament at multiple levels. 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 IMPRESSION: 1. No acute findings are seen in the abdomen or pelvis. 2. Right renal cyst with too small to characterize hypodense lesions in each kidney. 3. Probable left hepatic lobe cyst. 4. Post cholecystectomy changes. 5. Vascular calcifications. 6. Colonic diverticulosis. 7. Hysterectomy. POS: FERNANDO
== END 2019-10-19 21:08 | disposition home or self-care (01) ==
LOC: MADERS 18:41
DX: N39.0 Urinary tract infection, site not specified (principal); I10 Essential (primary) hypertension; R11.2 Nausea with vomiting, unspecified; Z79.899 Other long term (current) drug therapy
CPT/HCPCS: 74177; 80053; 81003; 81015; 83605; 83690; 84484; 85025; 87077; 87086; 87186; 93005; 96374; 96375; J2405; J3010; J7050; Q9967

== ENCOUNTER 2020-10-10 09:27 | Emergency (ER) | payer MEDICARE ==
[2020-10-10] MEDS ORDERED: Sodium Chloride 0.9% 1,000 ML ONE (10:30)
[2020-10-10] MEDS ORDERED: Pantoprazole 40 MG VIAL ONE (10:30)
[2020-10-10] MEDS ORDERED: Iopamidol 370 76% 100 ML VIAL ONE (10:46)
[2020-10-10 10:53] LABS: #Basophils 0.1 thou/uL (0.0-0.2); #Eosinphils 0.1 thou/uL (0.0-0.7); #Lymphocytes 1.6 thou/uL (1.20-3.40); #Monocytes 0.5 thou/uL (0.11-0.59); #Neutrophils 4.2 thou/uL (1.40-6.50); %Basophils 1.1 % (0.0-1.0); %Eosinophils 1.3 % (0.0-10.0); %Lymphocytes 24.6 % (21.0-51.0); %Monocytes 7.3 % (0.0-10.0); %Neutrophils 65.8 % (42.0-75.0); Hemoglobin 10.3 g/dL (12.0-16.0); Mean Corpuscular Hemoglobin 27.1 pg (27.0-31.0); Mean Corpuscular Volume 87.4 fL (78.0-98.0); Mean Platelet Volume 8.8 fL (7.4-10.4); Platelet Count 213 thou/uL (130-400); RBC Distribution Width 12.7 % (11.5-14.5); Red Blood Cell (RBC) Count 3.79 mill/uL (4.20-5.40); White Blood Cell (WBC) Count 6.4 thou/uL (4.8-10.8)
[2020-10-10 10:59] LABS: PTT 30.5 sec (22.9-36.1); Prothrombin Time 13.8 sec (12.0-14.7)
[2020-10-10 11:11] LABS: ALT (SGPT) 8 U/L (8-55); AST (SGOT) 14 U/L (5-34); Albumin 3.7 g/dL (3.4-4.8); Alkaline Phosphatase 59 U/L (40-110); Anion Gap 13 mmol/L (10-20); BUN (Urea Nitrogen) 21 mg/dL (9.8-20.1); Bilirubin, Total 0.3 mg/dL (0.2-1.2); Calc. Creatinine Clearance 0 mL/min (70-130); Calcium 8.7 mg/dL (7.8-10.44); Carbon Dioxide 23 mmol/L (23-31); Chloride 108 mmol/L (98-107); Globulin 3.2 g/dL (2.4-3.5); Glucose 100 mg/dL (83-110); Lipase 44 U/L (8-78); Potassium 4.2 mmol/L (3.5-5.1); Protein, Total 6.9 g/dL (6.0-8.3); Sodium 140 mmol/L (136-145)
--- NOTE | 2020-10-10 11:47 | CT ---
CT Abdomen Pelvis W Con History: GI bleed Comparison: CT abdomen pelvis September 2019 Findings: Mild scarring lung bases. No pericardial effusion. Mild skin thickening of both breasts. Prior cholecystectomy. Hypodensity left lobe of the liver is similar. Similar appearance of the reservoir effect common bile duct. Mild a prominent pancreatic duct measure s up to 3 mm. Dilated renal pelvis are similar in size. Partial duplication left renal collecting system. Right donovan al parapelvic cyst is similar. 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 The aortoiliac contour is nonaneurysmal. No dilated loops of large or small bowel. Severe left hip de generative changes with articular surface remodeling and subcortical cyst formation. Moderate heterotopic ossification along the right hip arthroplasty. Flowing bridging anterior osteophytes of the visualized thoracolumbar spine. No retroperitoneal peria ortic adenopathy. Small left adrenal nodule similar. Impression: No acute inflammatory process within the abdomen or pelvis.
[2020-10-10 11:56] LABS: Bilirubin Negative (Negative); Blood, Urine Moderate (Negative); Glucose, Urine (Dipstick) Negative (Negative); Ketone, Urine Negative (Negative); Leukocyte Small (Negative); Nitrite Negative (Negative); Protein, Urine (Dipstick) Negative (Neg-Trace); Specific Gravity, Urine 1.015 (1.005-1.030); Urobilinogen 0.2 mg/dL (Less than 2)
[2020-10-10 11:58] LABS: Clarity Hazy (Clear)
[2020-10-10 12:11] LABS: Bacteria/HPF Rare-Few HPF (None Seen); Squamous Epithelial 0-3 HPF (0-3)
== END 2020-10-10 13:08 | disposition short-term general hospital (02) ==
LOC: MADERS 09:27
DX: K92.2 Gastrointestinal hemorrhage, unspecified (principal); D64.9 Anemia, unspecified; I95.9 Hypotension, unspecified; I10 Essential (primary) hypertension; Z79.899 Other long term (current) drug therapy
CPT/HCPCS: 74177; 80053; 81003; 81015; 82150; 83690; 84484; 85025; 85610; 85730; 93005; 96374; C9113; J7050; Q9967

== ENCOUNTER 2020-10-18 14:51 | Outpatient (CLI) | payer MEDICARE ==
[2020-10-18 15:06] LABS: #Basophils 0.1 thou/uL (0.0-0.2); #Eosinphils 0.2 thou/uL (0.0-0.7); #Lymphocytes 3.1 thou/uL (1.20-3.40); #Monocytes 0.7 thou/uL (0.11-0.59); %Basophils 0.7 % (0.0-1.0); %Eosinophils 1.8 % (0.0-10.0); %Lymphocytes 33.9 % (21.0-51.0); %Monocytes 7.7 % (0.0-10.0); %Neutrophils 55.9 % (42.0-75.0); Hemoglobin 7.3 g/dL (12.0-16.0); Mean Corpuscular HGB CONC 32.3 g/dL (32.0-36.0); Mean Corpuscular Hemoglobin 28.7 pg (27.0-31.0); Mean Corpuscular Volume 88.9 fL (78.0-98.0); Mean Platelet Volume 6.2 fL (7.4-10.4); Platelet Count 237 thou/uL (130-400); RBC Distribution Width 14.2 % (11.5-14.5); Red Blood Cell (RBC) Count 2.53 mill/uL (4.20-5.40)
== END 2020-10-18 14:52 | disposition home or self-care (01) ==
LOC: MADLAB 14:51
PROVIDERS: ATTEND Family Medicine
DX: K92.2 Gastrointestinal hemorrhage, unspecified (principal)
CPT/HCPCS: 36415; 85025

== ENCOUNTER 2021-02-09 11:55 | Outpatient (CLI) | payer MEDICARE | END 2021-02-09 11:56 | disposition home or self-care (01) | LOC: MADRAD 11:55 | PROVIDERS: ATTEND Family Medicine | DX: M16.12 Unilateral primary osteoarthritis, left hip (principal) ==

== ENCOUNTER 2022-04-08 15:55 | Emergency (ER) | payer MEDICARE | END 2022-04-08 20:18 | disposition home or self-care (01) | LOC: MADERS 15:55 | DX: S39.012A Strain of muscle, fascia and tendon of lower back, initial encounter (principal); S80.02XA Contusion of left knee, initial encounter; S80.01XA Contusion of right knee, initial encounter; M81.0 Age-related osteoporosis without current pathological fracture; M19.90 Unspecified osteoarthritis, unspecified site; I10 Essential (primary) hypertension; W18.11XA Fall from or off toilet without subsequent striking against object, initial encounter | CPT/HCPCS: 72100 ==

== ENCOUNTER 2022-08-16 11:53 | Outpatient (CLI) | payer MEDICARE ==
[2022-08-16 12:30] LABS: Hemoglobin 11.3 g/dL (12.0-16.0); Mean Corpuscular HGB CONC 30.7 g/dL (32.0-36.0); Mean Corpuscular Hemoglobin 27.5 pg (27.0-31.0); Mean Corpuscular Volume 89.5 fL (78.0-98.0); Mean Platelet Volume 9.7 fL (7.4-10.4); Platelet Count 212 thou/uL (130-400); RBC Distribution Width 12.8 % (11.5-14.5); Red Blood Cell (RBC) Count 4.12 mill/uL (4.20-5.40); White Blood Cell (WBC) Count 6.1 thou/uL (4.8-10.8)
[2022-08-16 12:35] LABS: Band 2 % (5-11); Lymphocytes 30 % (21-51); MDiff Complete? YES; Manual Diff?? YES; Monocytes 5 % (0-10); Neutrophil 60 % (42-75)
[2022-08-16 12:36] LABS: Anisocytosis SLIGHT = 6-15 cells (100X) (0-5/hpf); Eosinophils 3 % (0-10); Platelet Morphology Comment Appears Adequate
[2022-08-16 12:38] LABS: ALT (SGPT) 8 U/L (8-55); AST (SGOT) 17 U/L (5-34); Alkaline Phosphatase 67 U/L (40-110); Anion Gap 13 mmol/L (10-20); BUN (Urea Nitrogen) 19 mg/dL (9.8-20.1); Bilirubin, Total 0.3 mg/dL (0.2-1.2); Calc. Creatinine Clearance 0 mL/min (70-130); Calcium 9.5 mg/dL (7.8-10.44); Carbon Dioxide 24 mmol/L (23-31); Cardiac Risk 2.9 (Less than 4.5); Chloride 106 mmol/L (98-107); Cholesterol 166 mg/dl (< 200 Desired); Estimated GFR 46; Globulin 3.6 g/dL (2.4-3.5); Glucose 79 mg/dL (83-110); HDL Cholesterol 57 mg/dL (>60 Neg Risk); LDL Cholesterol, Calculated 92 mg/dL; Potassium 4.4 mmol/L (3.5-5.1); Protein, Total 7.6 g/dL (5.8-8.1); Sodium 139 mmol/L (136-145); Triglycerides 87 mg/dL (Less than 150); Uric Acid 6.9 mg/dL (2.6-6.0)
== END 2022-08-16 11:54 | disposition home or self-care (01) ==
LOC: MADLAB 11:53
PROVIDERS: ATTEND Family Medicine
DX: M15.9 Polyosteoarthritis, unspecified (principal); D63.8 Anemia in other chronic diseases classified elsewhere; I10 Essential (primary) hypertension
CPT/HCPCS: 36415; 80053; 80061; 83520; 84443; 84550; 85025; 85652

== ENCOUNTER 2022-12-28 17:48 | Outpatient (CLI) | payer MEDICARE, OTHER | END 2022-12-28 17:49 | disposition home or self-care (01) | LOC: MADRAD 17:48 | PROVIDERS: ATTEND Internal Medicine | DX: R20.2 Paresthesia of skin (principal); M19.031 Primary osteoarthritis, right wrist; M79.89 Other specified soft tissue disorders; M25.831 Other specified joint disorders, right wrist; M15.1 Heberden's nodes (with arthropathy); M15.2 Bouchard's nodes (with arthropathy) ==

== ENCOUNTER 2023-03-06 16:45 | Outpatient (CLI) | payer OTHER | END 2023-03-06 16:46 | disposition home or self-care (01) | LOC: MADCT 16:45 | PROVIDERS: ATTEND Registered Nurse | DX: M48.02 Spinal stenosis, cervical region (principal); M47.812 Spondylosis without myelopathy or radiculopathy, cervical region; M25.78 Osteophyte, vertebrae | CPT/HCPCS: 72125 ==

== ENCOUNTER 2023-12-22 14:08 | Emergency (ER) | payer OTHER ==
[2023-12-22 17:34] LABS: ALT (SGPT) 12 U/L (8-55); AST (SGOT) 23 U/L (5-34); Alkaline Phosphatase 50 U/L (40-110); Anion Gap 18 mmol/L (10-20); BUN (Urea Nitrogen) 18 mg/dL (9.8-20.1); Bilirubin, Total 0.3 mg/dL (0.2-1.2); Calc. Creatinine Clearance 0 mL/min (70-130); Carbon Dioxide 21 mmol/L (23-31); Chloride 108 mmol/L (98-107); Estimated GFR 45; Glucose 99 mg/dL (83-110); Potassium 4.8 mmol/L (3.5-5.1); Sodium 142 mmol/L (136-145)
[2023-12-22 17:35] LABS: Troponin I Less than 0.010 ng/mL (< 0.028)
[2023-12-22 17:41] LABS: Hemoglobin 9.6 g/dL (12.0-16.0); Lymphocytes 14 % (21-51); MDiff Complete? YES; Mean Corpuscular HGB CONC 30.2 g/dL (32.0-36.0); Mean Corpuscular Hemoglobin 27.9 pg (27.0-31.0); Mean Corpuscular Volume 92.4 fl (78.0-98.0); Mean Platelet Volume 10.1 fL (7.4-10.4); Monocytes 6 % (0-10); Neutrophil 80 % (42-75); Platelet Adequacy Comment Appears Adequate; Platelet Count 173 10x3/uL (130-400); Red Blood Cell (RBC) Count 3.46 mill/uL (4.20-5.40); White Blood Cell (WBC) Count 6.8 10x3/uL (4.8-10.8)
[2023-12-22 18:28] LABS: Bilirubin Negative (Negative); Blood, Urine Negative (Negative); Clarity Cloudy (Clear); Glucose, Urine (Dipstick) Negative (Negative); Ketone, Urine Trace mg/dL (Negative); Leukocyte Moderate (Negative); Nitrite Negative (Negative); Protein, Urine (Dipstick) 30 mg/dL (Neg-Trace); Urobilinogen 0.2 mg/dL (Less than 2); pH, Urine 6.5 (5.0-9.0)
[2023-12-22 18:35] LABS: Bacteria/HPF 4+ HPF (None Seen); CAUTI Indications for Culture Dysuria,urgency,freq; RBC/HPF 0-3 HPF (0-3)
[2023-12-22 18:36] LABS: Urine Culture Reflex Yes Yes
[2023-12-22] MEDS ORDERED: Sulfameth/Trimethoprim DS 800-160mg TAB ONE (18:50)
== END 2023-12-22 18:59 | disposition short-term general hospital (02) ==
LOC: MADERS 14:08
DX: R55 Syncope and collapse (principal); I10 Essential (primary) hypertension
CPT/HCPCS: 71045; 80053; 81001; 83880; 84484; 85025; 87077; 87086; 93005

== ENCOUNTER 2024-03-14 15:15 | Emergency (ER) | payer MEDICARE, OTHER ==
[2024-03-14 16:25] LABS: INR-International Normal Ratio 1.2
[2024-03-14 16:26] LABS: PTT 33.6 sec (22.9-36.1)
[2024-03-14 16:33] LABS: Anion Gap 14 mmol/L (10-20); BUN (Urea Nitrogen) 19 mg/dL (9.8-20.1); Calc. Creatinine Clearance 0 mL/min (70-130); Calcium 8.2 mg/dL (7.8-10.44); Carbon Dioxide 19 mmol/L (23-31); Chloride 110 mmol/L (98-107); Estimated GFR 48; Glucose 86 mg/dL (83-110); Potassium 4.4 mmol/L (3.5-5.1); Sodium 139 mmol/L (136-145)
[2024-03-14 16:36] LABS: Troponin I 0.118 ng/mL (< 0.028)
[2024-03-14 16:37] LABS: #Basophils 0.1 thou/uL (0.0-0.2); #Lymphocytes 1.3 thou/uL (1.20-3.40); #Monocytes 0.6 thou/uL (0.11-0.59); #Neutrophils 3.4 thou/uL (1.40-6.50); %Basophils 1.4 % (0.0-1.0); %Eosinophils 0.5 % (0.0-10.0); %Lymphocytes 23.7 % (21.0-51.0); %Monocytes 10.6 % (0.0-10.0); %Neutrophils 63.8 % (42.0-75.0); Hematocrit 27.4 % (36.0-47.0); Hemoglobin 8.2 g/dL (12.0-16.0); Hypochromia MODERATE=16-30 cells (100X) (0-5/hpf); MDiff Complete? YES; Mean Corpuscular HGB CONC 29.8 g/dL (32.0-36.0); Mean Corpuscular Volume 93.9 fl (78.0-98.0); Mean Platelet Volume 9.7 fL (7.4-10.4); Platelet Count 131 10x3/uL (130-400); RBC Distribution Width 13.9 % (11.5-14.5); Red Blood Cell (RBC) Count 2.92 mill/uL (4.20-5.40); White Blood Cell (WBC) Count 5.3 10x3/uL (4.8-10.8)
[2024-03-14 16:41] LABS: Platelet Adequacy Comment Appears Adequate
[2024-03-14 16:45] LABS: Bilirubin Negative (Negative); Blood, Urine Negative (Negative); Clarity Hazy (Clear); Glucose, Urine (Dipstick) Negative (Negative); Ketone, Urine Negative (Negative); Leukocyte Moderate (Negative); Nitrite Negative (Negative); Protein, Urine (Dipstick) Negative (Neg-Trace); Urobilinogen 0.2 mg/dL (Less than 2)
[2024-03-14 16:52] LABS: Bacteria/HPF 3+ HPF (None Seen); CAUTI Indications for Culture Dysuria,urgency,freq; RBC/HPF None Seen HPF (0-3); Squamous Epithelial 0-3 HPF (0-3); Urine Culture Reflex Yes Yes; WBC/HPF Greater Than 50 HPF (0-3)
[2024-03-14] MEDS ORDERED: cefTRIAXone (ROCEPHIN) 1 GM VIAL ONE (17:11)
== END 2024-03-14 18:30 | disposition short-term general hospital (02) ==
LOC: MADERS 15:15
DX: I21.4 Non-ST elevation (NSTEMI) myocardial infarction (principal); N39.0 Urinary tract infection, site not specified; I10 Essential (primary) hypertension
CPT/HCPCS: 36415; 51701; 70450; 71045; 72170; 80048; 81001; 83605; 84484; 85025; 85610; 85730; 87077; 87086; 87186; 93005; 96374; J0696

== ENCOUNTER 2024-05-20 13:05 | Emergency (ER) | payer OTHER | END 2024-05-20 13:39 | disposition home or self-care (01) | LOC: MADERS 13:05 | DX: B30.9 Viral conjunctivitis, unspecified (principal); I10 Essential (primary) hypertension; Z79.82 Long term (current) use of aspirin; Z79.899 Other long term (current) drug therapy | CPT/HCPCS: 99282 ==